=== PATIENT | female | born 1930 ===

== ENCOUNTER 2017-03-02 16:28 | Inpatient (IN) | payer MEDICARE, OTHER ==
[2017-03-02] MEDS ORDERED: Sodium Chloride 0.9% 10 ML Syringe FLUSH PRN (17:16)
--- NOTE | 2017-03-02 18:25 | EDM.PDOC ---
ED HPI GENERAL MEDICAL PROBLEM - General Chief Complaint: Respiratory Problem Stated Complaint: COUGH, LOW STATS Time Seen by Provider: 03/02/17 16:55 Source of Information: Reports: Patient History Limitations: Reports: No Limitations - History of Present Illness INITIAL COMMENTS - FREE TEXT/NARRATIVE: 86-year-old female presents for evaluation and treatment of shortness of breath and productive cough. Patient reports that her symptoms started on Sunday. She presented to the walk-in clinic today where she was found to have oxygen sats in the 80s. She was sent over to us for further management and care. Upon arrival sats were in the 80s. She was placed on 4 L oxygen via nasal cannula and her oxygen increased to 97%. She is currently complaining of cough and cold symptoms. Reports that she is coughing up a thick brown and yellow sputum. She is also reporting some pain behind her right ear. She denies any fevers, chills , nausea, vomiting, headaches, body aches or any chest pain. Patient did get her influenza vaccine this year. Reports one week ago she was around her grandson who was ill. - Related Data Allergies Allergy/AdvReac Type Severity Reaction Status Date / Time No Known Allergies Allergy Verified 03/02/17 16:50 Home Meds: Home Meds Atenolol 50 mg PO DAILY 03/02/17 [History] Calcium Carbonate/Vitamin D3 [Calcium 600 + Vit D 200] 2 tab PO DAILY 03/02/17 [ History] Furosemide 20 mg PO BID 03/02/17 [History] Potassium Chloride 10 meq PO DAILY 03/02/17 [History] Simvastatin [Zocor] 5 mg PO BEDTIME 03/02/17 [History] amLODIPine Besylate [Amlodipine Besylate] 5 mg PO DAILY 03/02/17 [History] Past Medical History Cardiovascular History: Reports: High Cholesterol, Hypertension Respiratory History: Reports: COPD Genitourinary History: Reports: Other (See Below) Other Genitourinary History: "one abnormal kidney" - Past Surgical History GI Surgical History: Reports: Colonoscopy Male Surgical History: Reports: Other (See Below) Other Male Surgeries/Procedures: hysterectomy Musculoskeletal Surgical History: Reports: Knee Replacement Social & Family History - Tobacco Use Smoking Status *Q: Former Smoker Used Tobacco, but Quit: Yes Month Tobacco Last Used: 1989 - Caffeine Use Caffeine Use: Reports: Coffee - Recreational Drug Use Recreational Drug Use: No ED ROS GENERAL - Review of Systems Review Of Systems: See Below Constitutional: Denies: Fever HEENT: Reports: Ear Pain (behind the right ear), Throat Pain Respiratory: Reports: Shortness of Breath, Cough Cardiovascular: Denies: Chest Pain GI/Abdominal: Denies: Abdominal Pain, Nausea, Vomiting Neurological: Denies: Headache ED EXAM, GENERAL - Physical Exam Exam: See Below Exam Limited By: No Limitations General Appearance: Alert, WD/WN, No Apparent Distress Eye Exam: Bilateral Eye: Normal Inspection Ears: Normal External Exam, Normal Canal, Hearing Grossly Normal, Normal TMs Ear Exam: Bilateral Ear: Auricle Normal, Canal Normal, TM normal Nose: Normal Inspection Throat/Mouth: Normal Inspection, Normal Lips, Normal Voice, No Airway Compromise Head: Other (no mostoid tenderness) Neck: Normal Inspection Respiratory/Chest: No Respiratory Distress, Rhonchi (bilateral lung bases), Wheezing (diffuse expiratory) Cardiovascular: Normal Peripheral Pulses, Regular Rate, Rhythm, No Murmur GI/Abdominal: Normal Bowel Sounds, Soft, Non-Tender Neurological: Alert, Oriented, Normal Cognition Psychiatric: Normal Affect, Normal Mood Skin Exam: Warm, Dry, Normal Color Course - Vital Signs Last Recorded V/S: Last Vital Signs Temp 36.6 C 03/02/17 16:45 Pulse 80 03/03/17 00:06 Resp 20 03/02/17 20:06 BP 164/66 H 03/03/17 00:06 Pulse Ox 95 03/02/17 20:06 - Orders/Labs/Meds Orders: Active Orders 24 hr Category Date Time Status Cardiac Monitoring [RC] . DIRECTED Care 03/02/17 17:12 Active Oxygen Therapy [RC] ASDIRECTED Care 03/02/17 17:12 Active Peripheral IV Care [RC] . DIRECTED Care 03/02/17 17:16 Active RT Aerosol Therapy [RC] ASDIRECTED Care 03/02/17 18:43 Active Chest 2V [CR] Stat Exams 03/02/17 17:12 Taken Sodium Chloride 0.9% [Saline Flush] Med 03/02/17 17:16 Active 10 ml FLUSH ASDIRECTED PRN Peripheral IV Insertion Adult [OM.PC] Routine Oth 03/02/17 17:16 Ordered Medication Orders Acetaminophen (Tylenol) 650 mg PO Q4H PRN PRN Reason: Pain (moderate 4-6) Last Admin: 03/03/17 00:09 Dose: 650 mg Albuterol (Proventil Neb Soln) 2.5 mg NEB Q4H PRN PRN Reason: Shortness of Breath Albuterol/Ipratropium (Duoneb 3.0-0.5 Mg/3 Ml) 3 ml NEB QIDRT [facility] Last Admin: 03/02/17 22:03 Dose: 3 ml Atenolol (Tenormin) 25 mg PO BID [facility] Last Admin: 03/03/17 00:06 Dose: 25 mg Enoxaparin Sodium (Lovenox) 30 mg SUBCUT DAILY [facility] Guaifenesin/Phenylephrine HCl (Robitussin Dm) 10 ml PO Q4H PRN PRN Reason: Cough Azithromycin 500 mg/ Sodium (Chloride) 250 mls @ 250 mls/hr IV Q24H [facility] Last Admin: 03/03/17 00:12 Dose: 250 mls/hr Sodium Chloride (Sodium Chloride 0.45%) 1,000 mls @ 100 mls/hr IV ASDIRECTED [facility] Stop: 03/03/17 04:15 Sodium Chloride (Sodium Chloride 0.45%) 1,000 mls @ 75 mls/hr IV ASDIRECTED [facility] Ceftriaxone Sodium 2 gm/ (Sodium Chloride) 100 mls @ 200 mls/hr IV Q24H [facility] Loratadine (Claritin) 10 mg PO BEDTIME [facility] Last Admin: 03/03/17 00:11 Dose: 10 mg Methylprednisolone Sodium Succinate (Solu-Medrol) 80 mg IVPUSH Q8H [facility] Morphine Sulfate (Morphine) 1 mg IVPUSH Q4H PRN PRN Reason: Pain (severe 7-10) Oseltamivir Phosphate (Tamiflu) 75 mg PO QPM [facility] Last Admin: 03/03/17 00:11 Dose: 75 mg Pseudoephedrine HCl (Sudogest) 30 mg PO Q8H PRN PRN Reason: Congestion Simvastatin (Zocor) 5 mg PO BEDTIME [facility] Last Admin: 03/03/17 00:07 Dose: 5 mg Sodium Chloride (Saline Flush) 10 ml FLUSH ASDIRECTED PRN PRN Reason: Keep Vein Open Last Admin: 03/02/17 17:39 Dose: 10 ml Temazepam (Restoril) 7.5 mg PO BEDTIME PRN PRN Reason: Insomnia Tramadol HCl (Ultram) 50 mg PO Q8H PRN PRN Reason: Pain (moderate 4-6) Labs: Laboratory Tests 03/02/17 03/02/17 Range/Units 17:20 17:20 WBC 10.50 H (3.98-10.04) K/mm3 RBC 4.79 (3.98-5.22) M/mm3 Hgb 14.5 (11.2-15.7) gm/L Hct 44.9 (34.1-44.9) % MCV 93.7 (79.4-94.8) fl MCH 30.3 (25.6-32.2) pg MCHC 32.3 (32.2-35.5) g/dl RDW Std Deviation 48.3 H (36.4-46.3) fL Plt Count 174 L (182-369) K/mm3 MPV 11.0 (9.4-12.3) fl Neutrophils % (Manual) 61 H (40-60) % Band Neutrophils % 0 (0-10) % Lymphocytes % (Manual) 24 (20-40) % Atypical Lymphs % 0 % Monocytes % (Manual) 9 (2-10) % Eosinophils % (Manual) 6 H (0.7-5.8) % Basophils % (Manual) 0 L (0.1-1.2) Platelet Estimate Adequate RBC Morph Comment Normal Sodium 143 (136-145) mEq/L Potassium 3.8 (3.5-5.1) mEq/L Chloride 105 (98-107) mEq/L Carbon Dioxide 28 (21-32) mEq/L Anion Gap 13.8 (5-15) BUN 32 H (7-18) mg/dL Creatinine 1.4 H (0.55-1.02) mg/dL Est Cr Clr Drug Dosing 20.33 mL/min Estimated GFR (MDRD) 36 (>60) mL/min BUN/Creatinine Ratio 22.9 H (14-18) Glucose 108 (83-115) mg/dL Calcium 8.9 (8.5-10.1) mg/dL Total Bilirubin 0.5 (0.2-1.0) mg/dL AST 39 H (15-37) U/L ALT 36 (14-59) U/L Alkaline Phosphatase 72 (46-116) U/L C-Reactive Protein 18.2 H* (<1.0) mg/dL Total Protein 7.7 (6.4-8.2) g/dl Albumin 3.6 (3.4-5.0) g/dl Globulin 4.1 gm/dL Albumin/Globulin Ratio 0.9 L (1-2) Meds: Medications Generic Name Dose Route Start Last Admin Trade Name Freq PRN Reason Stop Dose Admin Acetaminophen 650 mg 03/02/17 20:42 03/03/17 00:09 Tylenol PO 650 mg Q4H PRN Administration Pain (moderate 4-6) Albuterol 2.5 mg 03/02/17 20:10 Proventil Neb Soln NEB Q4H PRN Shortness of Breath Albuterol/Ipratropium 3 ml 03/02/17 21:00 03/02/17 22:03 Duoneb 3.0-0.5 Mg/3 Ml NEB 3 ml QIDRT [facility] Administration Atenolol 25 mg 03/02/17 21:00 03/03/17 00:06 Tenormin PO 25 mg BID [facility] Administration Enoxaparin Sodium 30 mg 03/03/17 09:00 Lovenox SUBCUT DAILY [facility] Guaifenesin/Phenylephrine HCl 10 ml 03/02/17 20:43 Robitussin Dm PO Q4H PRN Cough Azithromycin 500 mg/ Sodium 250 mls @ 250 mls/hr 03/02/17 20:30 03/03/17 00: 12 Chloride IV 250 mls/hr Q24H [facility] Administration Sodium Chloride 1,000 mls @ 100 mls/hr 03/02/17 20:15 Sodium Chloride 0.45% IV 03/03/17 04:15 ASDIRECTED [facility] Sodium Chloride 1,000 mls @ 75 mls/hr 03/03/17 04:15 Sodium Chloride 0.45% IV ASDIRECTED [facility] Ceftriaxone Sodium 2 gm/ 100 mls @ 200 mls/hr 03/03/17 00:30 Sodium Chloride IV Q24H [facility] Loratadine 10 mg 03/02/17 21:00 03/03/17 00:11 Claritin PO 10 mg BEDTIME [facility] Administration Methylprednisolone Sodium Succinate 80 mg 03/02/17 20:30 Solu-Medrol IVPUSH Q8H [facility] Morphine Sulfate 1 mg 03/02/17 20:41 Morphine IVPUSH Q4H PRN Pain (severe 7-10) Oseltamivir Phosphate 75 mg 03/02/17 20:15 03/03/17 00:11 Tamiflu PO 75 mg QPM [facility] Administration Pseudoephedrine HCl 30 mg 03/02/17 20:40 Sudogest PO Q8H PRN Congestion Simvastatin 5 mg 03/02/17 21:00 03/03/17 00:07 Zocor PO 5 mg BEDTIME [facility] Administration Sodium Chloride 10 ml 03/02/17 17:16 03/02/17 17:39 Saline Flush FLUSH 10 ml ASDIRECTED PRN Administration Keep Vein Open Temazepam 7.5 mg 03/02/17 20:45 Restoril PO BEDTIME PRN Insomnia Tramadol HCl 50 mg 03/02/17 20:44 Ultram PO Q8H PRN Pain (moderate 4-6) Discontinued Medications Generic Name Dose Route Start Last Admin Trade Name Freq PRN Reason Stop Dose Admin Albuterol 2.5 mg 03/02/17 18:43 03/02/17 18:50 Proventil Neb Soln NEB 03/02/17 18:44 2.5 mg ONETIME ONE Administration Tramadol HCl 50 mg 03/02/17 20:40 Ultram PO Q6H PRN Pain (moderate 4-6) - Radiology Interpretation Free Text/Narrative:: chest xray reviewed by myself and Dr. Pierre shows no acute intrathoracic process. - Re-Assessments/Exams Free Text/Narrative Re-Assessment/Exam: 03/02/17 19:30 Influenza returned positive for type A. The patient needs to be admitted. She is agreeable to this. I discussed case with Dr. Braxton, hospitalist on-call. She will come and see the patient in the ER. Plan on admission. Departure - Departure Time of Disposition: 19:40 Disposition: Admitted As Inpatient 65 Condition: Poor Clinical Impression: Influenza A, Hypoxia - Discharge Information - My Orders Last 24 Hours: My Active Orders 03/02/17 17:12 Cardiac Monitoring [RC] . DIRECTED Oxygen Therapy [RC] ASDIRECTED Chest 2V [CR] Stat 03/02/17 17:16 Peripheral IV Care [RC] . DIRECTED Sodium Chloride 0.9% [Saline Flush] 10 ml FLUSH ASDIRECTED PRN Peripheral IV Insertion Adult [OM.PC] Routine 03/02/17 18:43 RT Aerosol Therapy [RC] ASDIRECTED - Assessment/Plan Last 24 Hours: My Active Orders 03/02/17 17:12 Cardiac Monitoring [RC] . DIRECTED Oxygen Therapy [RC] ASDIRECTED Chest 2V [CR] Stat 03/02/17 17:16 Peripheral IV Care [RC] . DIRECTED Sodium Chloride 0.9% [Saline Flush] 10 ml FLUSH ASDIRECTED PRN Peripheral IV Insertion Adult [OM.PC] Routine 03/02/17 18:43 RT Aerosol Therapy [RC] ASDIRECTED
[2017-03-02] MEDS ORDERED: Albuterol 0.083% 2.5 MG/3 ML Neb Soln NEB ONE (18:43)
--- NOTE | 2017-03-02 19:59 | PCM.HP ---
H&P History of Present Illness - General Date of Service: 03/02/17 Admit Problem/Dx: Admission Diagnosis/Problem Admission Diagnosis/Problem Influenza Source of Information: Patient, Provider History Limitations: Reports: No Limitations - History of Present Illness Initial Comments - Free Text/Narative: 86 year old female with probable Influenza A exposure from her grandson whom she spent 02/25/17. The symptoms began on Sunday or Sunday of this week. She had malaise, productive cough and generalized weakness. The patient was seen in a walk in clinic today, 03/02/17. During that visit, hypoxia was documented; O2 sat was in the low 80s but improved with O2. Currently on 4l/m NC, she is 97%. The patient has audible rhonchi without the use of a stethoscope. CXR shows a possible LLL infiltrate. She will be admitted to [facility]. Onset of Symptoms: Reports: Gradual Symptom Onset Date: 02/26/17 Duration of Symptoms: Reports: Day(s):, Getting Worse Location: Reports: Chest, Generalized Severity: Moderate Improves with: Reports: Medication Worsens with: Reports: None Associated Symptoms: Reports: Chest Pain, cough w sputum, Malaise, Weakness right ear Pain Score (Numeric/FACES): 10 - Related Data Allergies/Adverse Reactions: Allergies Allergy/AdvReac Type Severity Reaction Status Date / Time No Known Allergies Allergy Verified 03/03/17 03:02 Home Medications: Home Meds Atenolol 50 mg PO DAILY 03/02/17 [History] Furosemide 20 mg PO DAILY 03/02/17 [History] Potassium Chloride 20 meq PO DAILY 03/02/17 [History] Simvastatin [Zocor] 5 mg PO BEDTIME 03/02/17 [History] amLODIPine Besylate [Amlodipine Besylate] 10 mg PO DAILY 03/02/17 [History] Albuterol/Ipratropium [Combivent Respimat] 1 puff IH QID 03/03/17 [History] Docusate Sodium [Stool Softener] 100 mg PO TID PRN 03/03/17 [History] Fluticasone Propionate [Flovent] 2 puff IH BID 03/03/17 [History] Folic Acid 1 mg PO DAILY 03/03/17 [History] L Acidophil/B Lactis/B Longum [Florajen3] 460 mg PO DAILY 03/03/17 [History] Psyllium Seed/Aspartame [Natural Fiber Powder] 283 gm PO DAILY PRN 03/03/17 [ History] Sodium Bicarbonate 325 mg PO DAILY 03/03/17 [History] Past Medical History Cardiovascular History: Reports: High Cholesterol, Hypertension Respiratory History: Reports: COPD Genitourinary History: Reports: Other (See Below) Other Genitourinary History: "one abnormal kidney" - Past Surgical History GI Surgical History: Reports: Colonoscopy Male Surgical History: Reports: Other (See Below) Other Male Surgeries/Procedures: hysterectomy Musculoskeletal Surgical History: Reports: Knee Replacement Social & Family History - Tobacco Use Smoking Status *Q: Former Smoker Used Tobacco, but Quit: Yes Month Tobacco Last Used: 1989 - Caffeine Use Caffeine Use: Reports: Coffee - Recreational Drug Use Recreational Drug Use: No H&P Review of Systems - Review of Systems: Review Of Systems: See Below General: Reports: Malaise, Weakness, Decreased Appetite HEENT: Reports: No Symptoms, Ear Pain (right), Sore Throat Pulmonary: Reports: Shortness of Breath, Wheezing Cardiovascular: Reports: No Symptoms Gastrointestinal: Reports: No Symptoms Genitourinary: Reports: No Symptoms Musculoskeletal: Reports: No Symptoms Skin: Reports: No Symptoms Psychiatric: Reports: No Symptoms Neurological: Reports: No Symptoms Immunologic: Reports: No Symptoms Exam - Exam Exam: See Below - Vital Signs Vital Signs: Last Vital Signs Temp 36.6 C 03/02/17 16:45 Pulse 72 03/02/17 16:45 Resp 20 03/02/17 16:45 BP 162/65 H 03/02/17 16:45 Pulse Ox 95 03/02/17 18:43 Weight: 67.132 kg - Exam Quality Assessment: Supplemental Oxygen, DVT Prophylaxis General: Alert, Oriented HEENT: Conjunctiva Clear, EOMI, Pupils Equal, Pupils Reactive, PERRLA Neck: Supple, Trachea Midline Lungs: Normal Respiratory Effort Cardiovascular: Regular Rate, Regular Rhythm GI/Abdominal Exam: Normal Bowel Sounds, Soft, Non-Tender, No Organomegaly, No Distention (Female) Exam: Deferred Rectal (Female) Exam: Deferred Back Exam: Normal Inspection Extremities: Normal Inspection, Non-Tender Skin: Warm, Dry Neurological: Cranial Nerves Intact Neuro Extensive - Mental Status: Alert, Oriented x3, Normal Mood/Affect, Normal Cognition, Memory Intact Neuro Extensive - Motor, Sensory, Reflexes: CN II-XII Intact Psychiatric: Alert, Normal Affect, Normal Mood - Patient Data Result Diagrams: 03/03/17 06:05 03/03/17 06:05 *Q Meaningful Use (ADM) - VTE *Q VTE Criteria *Q: - Stroke *Q Stroke Criteria *Q: - AMI *Q AMI Criteria *Q: - Problem List (1) Hypoxia SNOMED Code(s): 596955656 ICD Code: R09.02 - HYPOXEMIA Status: Acute Current Visit: Yes (2) Influenza A SNOMED Code(s): 336192907 ICD Code: J10.1 - FLU DUE TO OTH IDENT INFLUENZA VIRUS W OTH RESP MANIFEST Status: Acute Current Visit: Yes Problem List Initiated/Reviewed/Updated: No Orders Last 24hrs: Active Orders 24 hr Category Date Time Status Atenolol [Tenormin] Med 03/02/17 21:00 Ordered 25 mg PO BID Simvastatin [Zocor] Med 03/02/17 21:00 Ordered 5 mg PO BEDTIME Medication Orders Sodium Chloride (Saline Flush) 10 ml FLUSH ASDIRECTED PRN PRN Reason: Keep Vein Open Last Admin: 03/02/17 17:39 Dose: 10 ml Assessment/Plan Comment:: Impression: Acute respiratory distress, mild Influenza A positive, reports getting Flu vaccine. COPD, history of tobacco; stopped 1989 Chronic HTN HLD Plan: Tamiflu, renal dose as available IVF Nebs IV steroids Empiric ATB coverage for PNA Daily labs Home meds Droplet precautions DVT/GI prophylaxis CM/PT/OT
[2017-03-02] MEDS ORDERED: Albuterol 0.083% 2.5 MG/3 ML Neb Soln NEB PRN (20:10)
[2017-03-02] MEDS ORDERED: Oseltamivir 75 MG Cap PO SCH (20:15)
[2017-03-02] MEDS ORDERED: Sodium Chloride 0.45% 1,000 ML IV SCH (20:15)
[2017-03-02] MEDS ORDERED: traMADol 50 MG Tab PO PRN ×2 (20:40→20:44)
[2017-03-02] MEDS ORDERED: Pseudoephedrine 30 MG Tab PO PRN (20:40)
[2017-03-02] MEDS ORDERED: Morphine 2 MG/ML Syringe IVPUSH PRN (20:41)
[2017-03-02] MEDS ORDERED: Acetaminophen 325 MG Tab PO PRN (20:42)
[2017-03-02] MEDS ORDERED: cefTRIAXone 2 GM in Sodium Chloride 0.9% 100 ML IV SCH (21:30)
[2017-03-02] MEDS: Albuterol/Ipratropium 3.0-0.5 MG/3 ML Neb Soln NEB SCH (22:03)
[2017-03-03] MEDS: Atenolol 50 MG Tab PO SCH ×3 (00:06→20:52)
[2017-03-03] MEDS: Simvastatin 10 MG Tab PO SCH ×2 (00:07→20:51)
[2017-03-03] MEDS: Loratadine 10 MG Tab PO SCH ×2 (00:11→20:53)
[2017-03-03] MEDS: Azithromycin 500 MG in Sodium Chloride 0.9% 250 ML IV SCH ×2 (00:12→20:51)
[2017-03-03] MEDS ORDERED: cefTRIAXone 2 GM in Sodium Chloride 0.9% 100 ML IV SCH (00:30)
[2017-03-03] MEDS: methylPREDNISolone Sodium Succinate 40 MG/1 ML SDV IVPUSH SCH ×2 (00:45→15:41)
[2017-03-03] MEDS ORDERED: cefTRIAXone 1 GM in Sodium Chloride 0.9% 100 ML IV ONE ×2 (01:30→02:00)
[2017-03-03] MEDS ORDERED: Sodium Chloride 0.45% 1,000 ML IV SCH (04:15)
[2017-03-03] MEDS: Albuterol/Ipratropium 3.0-0.5 MG/3 ML Neb Soln NEB SCH ×4 (06:34→21:28)
[2017-03-03] MEDS ORDERED: methylPREDNISolone Sodium Succinate 40 MG/1 ML SDV IVPUSH SCH (08:45)
[2017-03-03] MEDS: Enoxaparin 30 MG/0.3 ML Syringe SUBCUT SCH (09:52)
[2017-03-03] MEDS ORDERED: [UNRECOGNIZED DRUG - OTHER] PO PRN (12:30)
[2017-03-03] MEDS ORDERED: ASPARTAME PO PRN (12:30)
[2017-03-03] MEDS ORDERED: Docusate Sodium 100 MG Cap PO PRN (12:30)
--- NOTE | 2017-03-03 14:07 | CR ---
Chest: Two views of the chest were obtained. Comparison: No prior study. Heart is enlarged. Pulmonary vessels are slightly congested. Lungs otherwise are clear. Atherosclerotic calcification and mild tortuosity noted of the thoracic aorta. Degenerative change is noted within both acromioclavicular joints. Impression: 1. Cardiomegaly and slight pulmonary vascular congestion. Diagnostic code #2
[2017-03-03] MEDS: methylPREDNISolone Sodium Succinate 125 MG/2 ML SDV IVPUSH SCH (15:31)
[2017-03-03] MEDS: guaiFENesin/Dextromethorphan 100-10 MG/5 ML Soln 5 ML Cup PO PRN (15:31)
[2017-03-03] MEDS: hydrALAZINE 20 MG/ML SDV IVPUSH PRN (16:23)
[2017-03-03] MEDS: Oseltamivir 30 MG Cap PO SCH (17:32)
--- NOTE | 2017-03-03 18:30 | PCM.PN ---
- General Info Date of Service: 03/03/17 Functional Status: Reports: Tolerating Diet - Review of Systems General: Reports: Weakness, Malaise HEENT: Reports: No Symptoms Pulmonary: Reports: No Symptoms Cardiovascular: Reports: No Symptoms Gastrointestinal: Reports: No Symptoms Genitourinary: Reports: No Symptoms Musculoskeletal: Reports: No Symptoms Skin: Reports: No Symptoms Neurological: Reports: No Symptoms Psychiatric: Reports: No Symptoms - Patient Data Vitals - Most Recent: Last Vital Signs Temp 36.8 C 03/03/17 15:19 Pulse 74 03/03/17 15:19 Resp 18 03/03/17 15:19 BP 161/76 H 03/03/17 15:36 Pulse Ox 95 03/03/17 16:27 Weight - Most Recent: 67.132 kg I&O - Last 24 Hours: Intake & Output 03/03/17 03/03/17 03/03/17 06:59 14:59 22:59 Intake Total 600 1030 Output Total 275 250 Balance 325 780 Lab Results Last 24 Hours: Laboratory Results - last 24 hr 03/03/17 03/03/17 03/03/17 Range/Units 06:05 06:05 06:05 WBC 7.72 (3.98-10.04) K/mm3 RBC 4.34 (3.98-5.22) M/mm3 Hgb 13.3 (11.2-15.7) gm/L Hct 40.8 (34.1-44.9) % MCV 94.0 (79.4-94.8) fl MCH 30.6 (25.6-32.2) pg MCHC 32.6 (32.2-35.5) g/dl RDW Std Deviation 46.8 H (36.4-46.3) fL Plt Count 159 L (182-369) K/mm3 MPV 11.3 (9.4-12.3) fl Neut % (Auto) 90.4 H (34.0-71.1) % Lymph % (Auto) 7.5 L (19.3-51.7) % [place] % (Auto) 1.7 L (4.7-12.5) % Eos % (Auto) 0 L (0.7-5.8) Baso % (Auto) 0.1 (0.1-1.2) % Neut # (Auto) 6.98 H (1.56-6.13) K/mm3 Lymph # (Auto) 0.58 L (1.18-3.74) K/mm3 [place] # (Auto) 0.13 L (0.24-0.36) K/mm3 Eos # (Auto) 0.00 L (0.04-0.36) K/mm3 Baso # (Auto) 0.01 (0.01-0.08) K/mm3 Manual Slide Review Normal smear Sodium 144 (136-145) mEq/L Potassium 4.0 (3.5-5.1) mEq/L Chloride 109 H (98-107) mEq/L Carbon Dioxide 26 (21-32) mEq/L Anion Gap 13.0 (5-15) BUN 26 H (7-18) mg/dL Creatinine 1.2 H (0.55-1.02) mg/dL Est Cr Clr Drug Dosing 23.72 mL/min Estimated GFR (MDRD) 42 (>60) mL/min BUN/Creatinine Ratio 21.7 H (14-18) Glucose 163 H (83-115) mg/dL Lactic Acid 0.9 (0.4-2.0) mmol/L Calcium 8.3 L (8.5-10.1) mg/dL Magnesium 2.2 (1.8-2.4) mg/dl C-Reactive Protein 15.6 H* (<1.0) mg/dL Mycoplasma pneumon IgM Negative (NEGATIVE) Med Orders - Current: Current Medications Acetaminophen (Tylenol) 650 mg PO Q4H PRN PRN Reason: Pain (moderate 4-6) Last Admin: 03/03/17 00:09 Dose: 650 mg Albuterol (Proventil Neb Soln) 2.5 mg NEB Q4H PRN PRN Reason: Shortness of Breath Albuterol/Ipratropium (Duoneb 3.0-0.5 Mg/3 Ml) 3 ml NEB QIDRT [facility] Last Admin: 03/03/17 16:25 Dose: 3 ml Atenolol (Tenormin) 25 mg PO BID [facility] Last Admin: 03/03/17 09:51 Dose: 25 mg Docusate Sodium (Colace) 100 mg PO TID PRN PRN Reason: Constipation Enoxaparin Sodium (Lovenox) 30 mg SUBCUT DAILY [facility] Last Admin: 03/03/17 09:52 Dose: 30 mg Folic Acid (Folic Acid) 1 mg PO DAILY [facility] Guaifenesin/Phenylephrine HCl (Robitussin Dm) 10 ml PO Q4H PRN PRN Reason: Cough Last Admin: 03/03/17 15:31 Dose: 10 ml Hydralazine HCl (Apresoline) 20 mg IVPUSH Q6H PRN PRN Reason: Hypertension Last Admin: 03/03/17 16:23 Dose: 20 mg Azithromycin 500 mg/ Sodium (Chloride) 250 mls @ 250 mls/hr IV Q24H [facility] Last Admin: 03/03/17 00:12 Dose: 250 mls/hr Ceftriaxone Sodium 2 gm/ (Dextrose/Water) 100 mls @ 200 mls/hr IV Q24H [facility] Loratadine (Claritin) 10 mg PO BEDTIME [facility] Last Admin: 03/03/17 00:11 Dose: 10 mg Methylprednisolone Sodium Succinate (Solu-Medrol) 125 mg IVPUSH Q8H [facility] Last Admin: 03/03/17 15:31 Dose: 125 mg Morphine Sulfate (Morphine) 1 mg IVPUSH Q4H PRN PRN Reason: Pain (severe 7-10) Oseltamivir Phosphate (Tamiflu) 30 mg PO QPM [facility] Last Admin: 03/03/17 17:32 Dose: 30 mg Pseudoephedrine HCl (Sudogest) 30 mg PO Q8H PRN PRN Reason: Congestion Saccharomyces Boulardii (Florastor) 250 mg PO BID [facility] Simvastatin (Zocor) 5 mg PO BEDTIME [facility] Last Admin: 03/03/17 00:07 Dose: 5 mg Sodium Bicarbonate (Sodium Bicarbonate) 325 mg PO DAILY [facility] Sodium Chloride (Saline Flush) 10 ml FLUSH ASDIRECTED PRN PRN Reason: Keep Vein Open Last Admin: 03/02/17 17:39 Dose: 10 ml Temazepam (Restoril) 7.5 mg PO BEDTIME PRN PRN Reason: Insomnia Tramadol HCl (Ultram) 50 mg PO Q8H PRN PRN Reason: Pain (moderate 4-6) Discontinued Medications Albuterol (Proventil Neb Soln) 2.5 mg NEB ONETIME ONE Stop: 03/02/17 18:44 Last Admin: 03/02/17 18:50 Dose: 2.5 mg Sodium Chloride (Sodium Chloride 0.45%) 1,000 mls @ 100 mls/hr IV ASDIRECTED [facility] Stop: 03/03/17 04:15 Last Admin: 03/03/17 03:45 Dose: 100 mls/hr Sodium Chloride (Sodium Chloride 0.45%) 1,000 mls @ 75 mls/hr IV ASDIRECTED [facility] Ceftriaxone Sodium 1 gm/ (Sodium Chloride) 100 mls @ 200 mls/hr IV ONETIME ONE Stop: 03/03/17 01:59 Last Admin: 03/03/17 02:57 Dose: 200 mls/hr Ceftriaxone Sodium 1 gm/ (Sodium Chloride) 100 mls @ 200 mls/hr IV ONETIME ONE Stop: 03/03/17 02:29 Last Admin: 03/03/17 03:51 Dose: 200 mls/hr Ceftriaxone Sodium 2 gm/ (Sodium Chloride) 100 mls @ 200 mls/hr IV Q24H [facility] Methylprednisolone Sodium Succinate (Solu-Medrol) 80 mg IVPUSH Q8H [facility] Last Admin: 03/03/17 15:41 Dose: Not Given Methylprednisolone Sodium Succinate (Solu-Medrol) 80 mg IVPUSH Q8H [facility] Last Admin: 03/03/17 09:51 Dose: 80 mg Non-Formulary Medication (Fluticasone Propionate [Flovent]) 2 puff IH BID [facility] Non-Formulary Medication (L Acidophil/B Lactis/B Longum [Florajen3]) 460 mg PO DAILY [facility] Non-Formulary Medication (Psyllium Seed/Aspartame [Natural Fiber Powder]) 283 gm PO DAILY PRN PRN Reason: Constipation Oseltamivir Phosphate (Tamiflu) 75 mg PO QPM [facility] Last Admin: 03/03/17 00:11 Dose: 75 mg Tramadol HCl (Ultram) 50 mg PO Q6H PRN PRN Reason: Pain (moderate 4-6) - Exam Quality Assessment: Supplemental Oxygen, DVT Prophylaxis General: Alert, Oriented, Cooperative, No Acute Distress HEENT: Pupils Equal, Pupils Reactive, EOMI Neck: Trachea Midline, No JVD Lungs: Normal Respiratory Effort, Decreased Breath Sounds Cardiovascular: Regular Rate, Regular Rhythm GI/Abdominal Exam: Normal Bowel Sounds, Soft, Non-Tender, No Organomegaly, No Distention (Female) Exam: Deferred Back Exam: Normal Inspection Extremities: Normal Inspection, Non-Tender Skin: Warm Neurological: No New Focal Deficit, Normal Speech Psy/Mental Status: Alert, Normal Affect, Normal Mood - Problem List & Annotations (1) Hypoxia SNOMED Code(s): 709121567 Code(s): R09.02 - HYPOXEMIA Status: Acute Current Visit: Yes (2) Influenza A SNOMED Code(s): 531130864 Code(s): J10.1 - FLU DUE TO OTH IDENT INFLUENZA VIRUS W OTH RESP MANIFEST Status: Acute Current Visit: Yes - Problem List Review Problem List Initiated/Reviewed/Updated: Yes - My Orders Last 24 Hours: My Active Orders 03/02/17 20:10 Albuterol [Proventil Neb Soln] 2.5 mg NEB Q4H PRN 03/02/17 20:11 Activity as Tolerated [RC] .Routine 03/02/17 20:30 Azithromycin [Zithromax] 500 mg Sodium Chloride 0.9% [Normal Saline] 250 ml IV Q24H 03/02/17 20:40 Pseudoephedrine [Sudogest] 30 mg PO Q8H PRN 03/02/17 20:41 Morphine 1 mg IVPUSH Q4H PRN 03/02/17 20:42 Acetaminophen [Tylenol] 650 mg PO Q4H PRN 03/02/17 20:43 Dextromethorphan/guaiFENesin [Robitussin DM] 10 ml PO Q4H PRN 03/02/17 20:44 traMADol [Ultram] 50 mg PO Q8H PRN 03/02/17 20:45 Temazepam [Restoril] 7.5 mg PO BEDTIME PRN 03/02/17 20:49 Isolation [COMM] Routine 03/02/17 21:00 Albuterol/Ipratropium [DuoNeb 3.0-0.5 MG/3 ML] 3 ml NEB QIDRT Atenolol [Tenormin] 25 mg PO BID Loratadine [Claritin] 10 mg PO BEDTIME Simvastatin [Zocor] 5 mg PO BEDTIME 03/03/17 03:01 Code Status [Resuscitation Status] Routine 03/03/17 09:00 Consult to Occupational Therapy [OT Evaluation and Treatment] [CONS] Routine Enoxaparin [Lovenox] 30 mg SUBCUT DAILY 03/03/17 10:00 Consult to Physical Therapy [PT Evaluation and Treatment] [CONS] Routine 03/03/17 10:12 STREP PNEUMONIAE ANTIGEN [MREF] Routine 03/03/17 12:30 Docusate Sodium [Colace] 100 mg PO TID PRN 03/03/17 16:00 methylPREDNISolone Sod Succ [Solu-MEDROL] 125 mg IVPUSH Q8H 03/03/17 16:03 hydrALAZINE [Apresoline] 20 mg IVPUSH Q6H PRN 03/03/17 18:00 Oseltamivir [Tamiflu] 30 mg PO QPM 03/03/17 21:00 Saccharomyces Boulardii [Florastor] 250 mg PO BID 03/03/17 Lunch Heart Healthy Diet [DIET] 03/04/17 01:30 cefTRIAXone [Rocephin] 2 gm Dextrose 5% in Water 100 ml IV Q24H 03/04/17 05:00 BMP [BASIC METABOLIC PANEL,BMP] [CHEM] DAILY CBC WITH AUTO DIFF [HEME] DAILY CRP [C-REACTIVE PROTEIN] [CHEM] DAILY LACTIC ACID [CHEM] DAILY MAGNESIUM [CHEM] DAILY 03/04/17 09:00 CXR [Chest 2V] [CR] Routine Folic Acid 1 mg PO DAILY Sodium Bicarbonate 325 mg PO DAILY 03/05/17 05:00 BMP [BASIC METABOLIC PANEL,BMP] [CHEM] DAILY CBC WITH AUTO DIFF [HEME] DAILY CRP [C-REACTIVE PROTEIN] [CHEM] DAILY MAGNESIUM [CHEM] DAILY 03/06/17 05:00 BMP [BASIC METABOLIC PANEL,BMP] [CHEM] DAILY CBC WITH AUTO DIFF [HEME] DAILY CRP [C-REACTIVE PROTEIN] [CHEM] DAILY MAGNESIUM [CHEM] DAILY 03/07/17 05:00 BMP [BASIC METABOLIC PANEL,BMP] [CHEM] DAILY CBC WITH AUTO DIFF [HEME] DAILY CRP [C-REACTIVE PROTEIN] [CHEM] DAILY MAGNESIUM [CHEM] DAILY - Plan Plan:: Impression: Acute respiratory distress--resolved Influenza A positive, reports getting Flu vaccine. COPD, history of tobacco; stopped 1989 Chronic HTN HLD Plan: Tamiflu, renal dose as available IVF Nebs IV steroids Empiric ATB coverage for PNA Daily labs Home meds Droplet precautions DVT/GI prophylaxis CM/PT/OT
[2017-03-03] MEDS: Saccharomyces Boulardii (Probiotic) 250 MG Cap PO SCH (20:51)
[2017-03-03] MEDS ORDERED: Non-Formulary Medication 1 Each (Fluticasone Propionate [Flovent] 2 PUFF) IH SCH (21:00)
[2017-03-04] MEDS: methylPREDNISolone Sodium Succinate 125 MG/2 ML SDV IVPUSH SCH ×3 (00:14→15:57)
[2017-03-04] MEDS: Temazepam 7.5 MG Cap PO PRN ×2 (00:30→20:12)
[2017-03-04] MEDS ORDERED: cefTRIAXone 2 GM in Sodium Chloride 0.9% 100 ML IV SCH (01:30)
[2017-03-04] MEDS: hydrALAZINE 20 MG/ML SDV IVPUSH PRN (05:43)
[2017-03-04] MEDS: Albuterol/Ipratropium 3.0-0.5 MG/3 ML Neb Soln NEB SCH ×4 (06:41→20:51)
[2017-03-04] MEDS ORDERED: Non-Formulary Medication 1 Each (L Acidophil/B Lactis/B Longum [Florajen3] 460 MG) PO SCH (09:00)
[2017-03-04] MEDS: Enoxaparin 30 MG/0.3 ML Syringe SUBCUT SCH (09:10)
[2017-03-04] MEDS: Saccharomyces Boulardii (Probiotic) 250 MG Cap PO SCH ×2 (09:10→20:11)
[2017-03-04] MEDS: Atenolol 50 MG Tab PO SCH ×2 (09:11→20:18)
[2017-03-04] MEDS: Folic Acid 1 MG Tab PO SCH (09:11)
[2017-03-04] MEDS: Sodium Bicarbonate 650 MG Tab PO SCH (09:11)
--- NOTE | 2017-03-04 09:29 | CR ---
Chest: 2 views of the chest were obtained. Comparison: Previous chest x-ray 03/02/17. Heart is mildly enlarged. Tortuous thoracic aorta is seen. Pulmonary vessels are slightly increased. Pulmonary vessels may be mildly increased from prior study. Lungs otherwise are clear. Probable minimal pleural effusions are noted. Bony structures appear within normal limits for the patient's age. Impression: 1. Cardiomegaly and pulmonary vascular congestion. Pulmonary vascular congestion is felt to be slightly increased from previous study. 2. Possible minimal pleural effusions. Diagnostic code #3
--- NOTE | 2017-03-04 09:44 | PCM.PN ---
- General Info Date of Service: 03/04/17 Subjective Update: ; is slowly feeling better. She has minimal complaints. The patient reports less shortness of breath Functional Status: Reports: Tolerating Diet, Ambulating, Urinating - Review of Systems General: Reports: Weakness HEENT: Reports: No Symptoms Pulmonary: Reports: Shortness of Breath Cardiovascular: Reports: No Symptoms Gastrointestinal: Reports: No Symptoms Genitourinary: Reports: No Symptoms Musculoskeletal: Reports: No Symptoms Skin: Reports: No Symptoms Neurological: Reports: No Symptoms Psychiatric: Reports: No Symptoms - Patient Data Vitals - Most Recent: Last Vital Signs Temp 36.4 C 03/04/17 07:19 Pulse 88 03/04/17 07:19 Resp 16 03/04/17 07:19 BP 145/56 H 03/04/17 07:19 Pulse Ox 92 L 03/04/17 07:19 Weight - Most Recent: 69.173 kg I&O - Last 24 Hours: Intake & Output 03/03/17 03/04/17 03/04/17 22:59 06:59 14:59 Intake Total 1030 750 Output Total 250 525 Balance 780 225 Lab Results Last 24 Hours: Laboratory Results - last 24 hr 03/04/17 03/04/17 03/04/17 Range/Units 06:15 06:15 06:15 WBC 10.71 H (3.98-10.04) K/mm3 RBC 4.39 (3.98-5.22) M/mm3 Hgb 13.4 (11.2-15.7) gm/L Hct 41.0 (34.1-44.9) % MCV 93.4 (79.4-94.8) fl MCH 30.5 (25.6-32.2) pg MCHC 32.7 (32.2-35.5) g/dl RDW Std Deviation 47.1 H (36.4-46.3) fL Plt Count 174 L (182-369) K/mm3 MPV 11.3 (9.4-12.3) fl Neut % (Auto) 83.0 H (34.0-71.1) % Lymph % (Auto) 10.7 L (19.3-51.7) % [place] % (Auto) 5.1 (4.7-12.5) % Eos % (Auto) 0 L (0.7-5.8) Baso % (Auto) 0.3 (0.1-1.2) % Neut # (Auto) 8.88 H (1.56-6.13) K/mm3 Lymph # (Auto) 1.15 L (1.18-3.74) K/mm3 [place] # (Auto) 0.55 H (0.24-0.36) K/mm3 Eos # (Auto) 0.00 L (0.04-0.36) K/mm3 Baso # (Auto) 0.03 (0.01-0.08) K/mm3 Manual Slide Review Normal smear Sodium 143 (136-145) mEq/L Potassium 3.8 (3.5-5.1) mEq/L Chloride 107 (98-107) mEq/L Carbon Dioxide 25 (21-32) mEq/L Anion Gap 14.8 (5-15) BUN 27 H (7-18) mg/dL Creatinine 1.1 H (0.55-1.02) mg/dL Est Cr Clr Drug Dosing 25.88 mL/min Estimated GFR (MDRD) 47 (>60) mL/min BUN/Creatinine Ratio 24.5 H (14-18) Glucose 179 H (83-115) mg/dL Lactic Acid 1.0 (0.4-2.0) mmol/L Calcium 8.8 (8.5-10.1) mg/dL Magnesium 2.3 (1.8-2.4) mg/dl C-Reactive Protein 9.4 H* (<1.0) mg/dL Med Orders - Current: Current Medications Acetaminophen (Tylenol) 650 mg PO Q4H PRN PRN Reason: Pain (moderate 4-6) Last Admin: 03/03/17 00:09 Dose: 650 mg Albuterol (Proventil Neb Soln) 2.5 mg NEB Q4H PRN PRN Reason: Shortness of Breath Albuterol/Ipratropium (Duoneb 3.0-0.5 Mg/3 Ml) 3 ml NEB QIDRT [facility] Last Admin: 03/04/17 06:41 Dose: 3 ml Atenolol (Tenormin) 25 mg PO BID [facility] Last Admin: 03/04/17 09:11 Dose: 25 mg Docusate Sodium (Colace) 100 mg PO TID PRN PRN Reason: Constipation Enoxaparin Sodium (Lovenox) 30 mg SUBCUT DAILY [facility] Last Admin: 03/04/17 09:10 Dose: 30 mg Folic Acid (Folic Acid) 1 mg PO DAILY [facility] Last Admin: 03/04/17 09:11 Dose: 1 mg Guaifenesin/Phenylephrine HCl (Robitussin Dm) 10 ml PO Q4H PRN PRN Reason: Cough Last Admin: 03/03/17 15:31 Dose: 10 ml Hydralazine HCl (Apresoline) 20 mg IVPUSH Q6H PRN PRN Reason: Hypertension Last Admin: 03/04/17 05:43 Dose: 20 mg Azithromycin 500 mg/ Sodium (Chloride) 250 mls @ 250 mls/hr IV Q24H [facility] Last Admin: 03/03/17 20:51 Dose: 250 mls/hr Ceftriaxone Sodium 2 gm/ (Dextrose/Water) 100 mls @ 200 mls/hr IV Q24H [facility] Last Admin: 03/04/17 00:31 Dose: 200 mls/hr Loratadine (Claritin) 10 mg PO BEDTIME [facility] Last Admin: 03/03/17 20:53 Dose: 10 mg Methylprednisolone Sodium Succinate (Solu-Medrol) 125 mg IVPUSH Q8H [facility] Last Admin: 03/04/17 09:10 Dose: 125 mg Morphine Sulfate (Morphine) 1 mg IVPUSH Q4H PRN PRN Reason: Pain (severe 7-10) Oseltamivir Phosphate (Tamiflu) 30 mg PO QPM [facility] Stop: 03/06/17 20:00 Last Admin: 03/03/17 17:32 Dose: 30 mg Pseudoephedrine HCl (Sudogest) 30 mg PO Q8H PRN PRN Reason: Congestion Saccharomyces Boulardii (Florastor) 250 mg PO BID [facility] Last Admin: 03/04/17 09:10 Dose: 250 mg Simvastatin (Zocor) 5 mg PO BEDTIME [facility] Last Admin: 03/03/17 20:51 Dose: 5 mg Sodium Bicarbonate (Sodium Bicarbonate) 325 mg PO DAILY [facility] Last Admin: 03/04/17 09:11 Dose: 325 mg Sodium Chloride (Saline Flush) 10 ml FLUSH ASDIRECTED PRN PRN Reason: Keep Vein Open Last Admin: 03/02/17 17:39 Dose: 10 ml Temazepam (Restoril) 7.5 mg PO BEDTIME PRN PRN Reason: Insomnia Last Admin: 03/04/17 00:30 Dose: 7.5 mg Tramadol HCl (Ultram) 50 mg PO Q8H PRN PRN Reason: Pain (moderate 4-6) Discontinued Medications Albuterol (Proventil Neb Soln) 2.5 mg NEB ONETIME ONE Stop: 03/02/17 18:44 Last Admin: 03/02/17 18:50 Dose: 2.5 mg Sodium Chloride (Sodium Chloride 0.45%) 1,000 mls @ 100 mls/hr IV ASDIRECTED [facility] Stop: 03/03/17 04:15 Last Admin: 03/03/17 03:45 Dose: 100 mls/hr Sodium Chloride (Sodium Chloride 0.45%) 1,000 mls @ 75 mls/hr IV ASDIRECTED [facility] Ceftriaxone Sodium 1 gm/ (Sodium Chloride) 100 mls @ 200 mls/hr IV ONETIME ONE Stop: 03/03/17 01:59 Last Admin: 03/03/17 02:57 Dose: 200 mls/hr Ceftriaxone Sodium 1 gm/ (Sodium Chloride) 100 mls @ 200 mls/hr IV ONETIME ONE Stop: 03/03/17 02:29 Last Admin: 03/03/17 03:51 Dose: 200 mls/hr Ceftriaxone Sodium 2 gm/ (Sodium Chloride) 100 mls @ 200 mls/hr IV Q24H [facility] Methylprednisolone Sodium Succinate (Solu-Medrol) 80 mg IVPUSH Q8H [facility] Last Admin: 03/03/17 15:41 Dose: Not Given Methylprednisolone Sodium Succinate (Solu-Medrol) 80 mg IVPUSH Q8H [facility] Last Admin: 03/03/17 09:51 Dose: 80 mg Non-Formulary Medication (Fluticasone Propionate [Flovent]) 2 puff IH BID [facility] Non-Formulary Medication (L Acidophil/B Lactis/B Longum [Florajen3]) 460 mg PO DAILY [facility] Non-Formulary Medication (Psyllium Seed/Aspartame [Natural Fiber Powder]) 283 gm PO DAILY PRN PRN Reason: Constipation Oseltamivir Phosphate (Tamiflu) 75 mg PO QPM [facility] Last Admin: 03/03/17 00:11 Dose: 75 mg Tramadol HCl (Ultram) 50 mg PO Q6H PRN PRN Reason: Pain (moderate 4-6) - Exam Quality Assessment: Supplemental Oxygen, DVT Prophylaxis General: Alert, Oriented, Cooperative, No Acute Distress HEENT: Pupils Equal, Pupils Reactive, EOMI Neck: Supple, Trachea Midline, No JVD Lungs: Normal Respiratory Effort, Decreased Breath Sounds Cardiovascular: Regular Rate, Regular Rhythm GI/Abdominal Exam: Normal Bowel Sounds, Soft, Non-Tender, No Organomegaly, No Distention (Female) Exam: Deferred Back Exam: Normal Inspection Extremities: Normal Inspection, Non-Tender Skin: Warm Neurological: No New Focal Deficit Psy/Mental Status: Alert, Normal Affect, Normal Mood - Problem List & Annotations (1) Hypoxia SNOMED Code(s): 915041456 Code(s): R09.02 - HYPOXEMIA Status: Acute Current Visit: Yes (2) Influenza A SNOMED Code(s): 020335424 Code(s): J10.1 - FLU DUE TO OTH IDENT INFLUENZA VIRUS W OTH RESP MANIFEST Status: Acute Current Visit: Yes - Problem List Review Problem List Initiated/Reviewed/Updated: Yes - My Orders Last 24 Hours: My Active Orders 03/03/17 09:00 Consult to Occupational Therapy [OT Evaluation and Treatment] [CONS] Routine Enoxaparin [Lovenox] 30 mg SUBCUT DAILY 03/03/17 10:00 Consult to Physical Therapy [PT Evaluation and Treatment] [CONS] Routine 03/03/17 10:12 STREP PNEUMONIAE ANTIGEN [MREF] Routine 03/03/17 12:30 Docusate Sodium [Colace] 100 mg PO TID PRN 03/03/17 16:00 methylPREDNISolone Sod Succ [Solu-MEDROL] 125 mg IVPUSH Q8H 03/03/17 16:03 hydrALAZINE [Apresoline] 20 mg IVPUSH Q6H PRN 03/03/17 18:00 Oseltamivir [Tamiflu] 30 mg PO QPM 03/03/17 21:00 Saccharomyces Boulardii [Florastor] 250 mg PO BID 03/03/17 Lunch Heart Healthy Diet [DIET] 03/04/17 01:30 cefTRIAXone [Rocephin] 2 gm Dextrose 5% in Water 100 ml IV Q24H 03/04/17 09:00 Folic Acid 1 mg PO DAILY Sodium Bicarbonate 325 mg PO DAILY 03/05/17 05:00 BMP [BASIC METABOLIC PANEL,BMP] [CHEM] DAILY CBC WITH AUTO DIFF [HEME] DAILY CRP [C-REACTIVE PROTEIN] [CHEM] DAILY MAGNESIUM [CHEM] DAILY 03/06/17 05:00 BMP [BASIC METABOLIC PANEL,BMP] [CHEM] DAILY CBC WITH AUTO DIFF [HEME] DAILY CRP [C-REACTIVE PROTEIN] [CHEM] DAILY MAGNESIUM [CHEM] DAILY 03/07/17 05:00 BMP [BASIC METABOLIC PANEL,BMP] [CHEM] DAILY CBC WITH AUTO DIFF [HEME] DAILY CRP [C-REACTIVE PROTEIN] [CHEM] DAILY MAGNESIUM [CHEM] DAILY - Plan Plan:: Impression: Acute respiratory distress, mild Influenza A positive, reports getting Flu vaccine. COPD, history of tobacco; stopped 1989 Chronic HTN HLD Plan: Tamiflu, renal dose as available IVF Nebs IV steroids Empiric ATB coverage for PNA Daily labs Home meds Droplet precautions DVT/GI prophylaxis CM/PT/OT
[2017-03-04] MEDS ORDERED: Furosemide 20 MG/2 ML VIAL IVPUSH ONE (11:13)
[2017-03-04] MEDS: guaiFENesin/Dextromethorphan 100-10 MG/5 ML Soln 5 ML Cup PO PRN ×2 (16:54→20:10)
[2017-03-04] MEDS: Oseltamivir 30 MG Cap PO SCH ×2 (16:54→17:00)
[2017-03-04] MEDS: Azithromycin 500 MG in Sodium Chloride 0.9% 250 ML IV SCH (20:10)
[2017-03-04] MEDS: Simvastatin 10 MG Tab PO SCH (20:12)
[2017-03-04] MEDS: Loratadine 10 MG Tab PO SCH (20:12)
[2017-03-05] MEDS: methylPREDNISolone Sodium Succinate 125 MG/2 ML SDV IVPUSH SCH ×2 (00:10→08:12)
[2017-03-05] MEDS: hydrALAZINE 20 MG/ML SDV IVPUSH PRN ×2 (02:13→20:22)
[2017-03-05] MEDS: Albuterol/Ipratropium 3.0-0.5 MG/3 ML Neb Soln NEB SCH ×4 (06:22→21:26)
[2017-03-05] MEDS: Saccharomyces Boulardii (Probiotic) 250 MG Cap PO SCH ×2 (08:12→20:19)
[2017-03-05] MEDS: Enoxaparin 30 MG/0.3 ML Syringe SUBCUT SCH (08:12)
[2017-03-05] MEDS: Sodium Bicarbonate 650 MG Tab PO SCH (08:13)
[2017-03-05] MEDS: Folic Acid 1 MG Tab PO SCH (08:13)
[2017-03-05] MEDS: Atenolol 50 MG Tab PO SCH ×2 (08:21→20:19)
[2017-03-05] MEDS: amLODIPine 10 MG Tab PO SCH (11:13)
[2017-03-05] MEDS: Potassium Chloride 10 MEQ Tab.ER PO SCH (11:13)
[2017-03-05] MEDS: Furosemide 20 MG Tab PO SCH (11:13)
--- NOTE | 2017-03-05 11:39 | PCM.PN ---
- General Info Date of Service: 03/05/17 Admission Dx/Problem (Free Text): Admission Diagnosis/Problem Admission Diagnosis/Problem Influenza A Doing well this morning. Offers no complaints. Cough is improving, afebrile and other VSS. Functional Status: Reports: Pain Controlled, Tolerating Diet, Ambulating, Urinating, Incentive Spirometry - Review of Systems General: Reports: No Symptoms HEENT: Reports: No Symptoms Pulmonary: Reports: Cough. Denies: Sputum Cardiovascular: Reports: No Symptoms. Denies: Chest Pain Gastrointestinal: Reports: No Symptoms. Denies: Abdominal Pain, Nausea, Vomiting Genitourinary: Reports: No Symptoms Neurological: Reports: No Symptoms - Patient Data Vitals - Most Recent: Last Vital Signs Temp 97.9 F 03/05/17 08:19 Pulse 88 03/05/17 08:21 Resp 18 03/05/17 08:19 BP 159/62 H 03/05/17 11:13 Pulse Ox 94 L 03/05/17 10:13 Weight - Most Recent: 151 lb 12.8 oz I&O - Last 24 Hours: Intake & Output 03/04/17 03/05/17 03/05/17 22:59 06:59 14:59 Intake Total 300 750 180 Output Total 350 700 Balance -50 50 180 Lab Results Last 24 Hours: Laboratory Results - last 24 hr 03/05/17 03/05/17 Range/Units 06:35 06:35 WBC 18.14 H (3.98-10.04) K/mm3 RBC 4.34 (3.98-5.22) M/mm3 Hgb 13.2 (11.2-15.7) gm/L Hct 40.7 (34.1-44.9) % MCV 93.8 (79.4-94.8) fl MCH 30.4 (25.6-32.2) pg MCHC 32.4 (32.2-35.5) g/dl RDW Std Deviation 48.5 H (36.4-46.3) fL Plt Count 210 (182-369) K/mm3 MPV 11.1 (9.4-12.3) fl Neut % (Auto) 86.4 H (34.0-71.1) % Lymph % (Auto) 7.6 L (19.3-51.7) % [place] % (Auto) 3.9 L (4.7-12.5) % Eos % (Auto) 0 L (0.7-5.8) Baso % (Auto) 0.3 (0.1-1.2) % Neut # (Auto) 15.68 H (1.56-6.13) K/mm3 Lymph # (Auto) 1.38 (1.18-3.74) K/mm3 [place] # (Auto) 0.70 H (0.24-0.36) K/mm3 Eos # (Auto) 0.00 L (0.04-0.36) K/mm3 Baso # (Auto) 0.05 (0.01-0.08) K/mm3 Manual Slide Review Abnormal smear Sodium 144 (136-145) mEq/L Potassium 3.6 (3.5-5.1) mEq/L Chloride 108 H (98-107) mEq/L Carbon Dioxide 26 (21-32) mEq/L Anion Gap 13.6 (5-15) BUN 32 H (7-18) mg/dL Creatinine 1.4 H (0.55-1.02) mg/dL Est Cr Clr Drug Dosing 20.33 mL/min Estimated GFR (MDRD) 36 (>60) mL/min BUN/Creatinine Ratio 22.9 H (14-18) Glucose 179 H (83-115) mg/dL Calcium 8.6 (8.5-10.1) mg/dL Magnesium 2.3 (1.8-2.4) mg/dl C-Reactive Protein 4.2 H* (<1.0) mg/dL Med Orders - Current: Current Medications Acetaminophen (Tylenol) 650 mg PO Q4H PRN PRN Reason: Pain (moderate 4-6) Last Admin: 03/03/17 00:09 Dose: 650 mg Albuterol (Proventil Neb Soln) 2.5 mg NEB Q4H PRN PRN Reason: Shortness of Breath Albuterol/Ipratropium (Duoneb 3.0-0.5 Mg/3 Ml) 3 ml NEB QIDRT [facility] Last Admin: 03/05/17 10:11 Dose: 3 ml Amlodipine Besylate (Norvasc) 10 mg PO DAILY [facility] Last Admin: 03/05/17 11:13 Dose: 10 mg Atenolol (Tenormin) 25 mg PO BID [facility] Last Admin: 03/05/17 08:21 Dose: 25 mg Azithromycin (Zithromax) 250 mg PO Q24H [facility] Docusate Sodium (Colace) 100 mg PO TID PRN PRN Reason: Constipation Enoxaparin Sodium (Lovenox) 30 mg SUBCUT DAILY [facility] Last Admin: 03/05/17 08:12 Dose: 30 mg Folic Acid (Folic Acid) 1 mg PO DAILY [facility] Last Admin: 03/05/17 08:13 Dose: 1 mg Furosemide (Lasix) 20 mg PO DAILY [facility] Last Admin: 03/05/17 11:13 Dose: 20 mg Guaifenesin/Phenylephrine HCl (Robitussin Dm) 10 ml PO Q4H PRN PRN Reason: Cough Last Admin: 03/04/17 20:10 Dose: 10 ml Hydralazine HCl (Apresoline) 20 mg IVPUSH Q6H PRN PRN Reason: Hypertension Last Admin: 03/05/17 02:13 Dose: 20 mg Loratadine (Claritin) 10 mg PO BEDTIME [facility] Last Admin: 03/04/17 20:12 Dose: 10 mg Methylprednisolone Sodium Succinate (Solu-Medrol) 80 mg IVPUSH Q12H [facility] Morphine Sulfate (Morphine) 1 mg IVPUSH Q4H PRN PRN Reason: Pain (severe 7-10) Oseltamivir Phosphate (Tamiflu) 30 mg PO QPM [facility] Stop: 03/06/17 20:00 Last Admin: 03/04/17 17:00 Dose: Not Given Potassium Chloride (Klor-Con 10) 20 meq PO DAILY [facility] Last Admin: 03/05/17 11:13 Dose: 20 meq Pseudoephedrine HCl (Sudogest) 30 mg PO Q8H PRN PRN Reason: Congestion Saccharomyces Boulardii (Florastor) 250 mg PO BID [facility] Last Admin: 03/05/17 08:12 Dose: 250 mg Simvastatin (Zocor) 5 mg PO BEDTIME [facility] Last Admin: 03/04/17 20:12 Dose: 5 mg Sodium Bicarbonate (Sodium Bicarbonate) 325 mg PO DAILY [facility] Last Admin: 03/05/17 08:13 Dose: 325 mg Sodium Chloride (Saline Flush) 10 ml FLUSH ASDIRECTED PRN PRN Reason: Keep Vein Open Last Admin: 03/02/17 17:39 Dose: 10 ml Temazepam (Restoril) 7.5 mg PO BEDTIME PRN PRN Reason: Insomnia Last Admin: 03/04/17 20:12 Dose: 7.5 mg Tramadol HCl (Ultram) 50 mg PO Q8H PRN PRN Reason: Pain (moderate 4-6) Discontinued Medications Albuterol (Proventil Neb Soln) 2.5 mg NEB ONETIME ONE Stop: 03/02/17 18:44 Last Admin: 03/02/17 18:50 Dose: 2.5 mg Cefpodoxime Proxetil (Vantin) 200 mg PO BID [facility] Furosemide (Lasix) 10 mg IVPUSH NOW ONE Stop: 03/04/17 11:14 Last Admin: 03/04/17 11:35 Dose: 10 mg Azithromycin 500 mg/ Sodium (Chloride) 250 mls @ 250 mls/hr IV Q24H [facility] Last Admin: 03/04/17 20:10 Dose: 250 mls/hr Sodium Chloride (Sodium Chloride 0.45%) 1,000 mls @ 100 mls/hr IV ASDIRECTED [facility] Stop: 03/03/17 04:15 Last Admin: 03/03/17 03:45 Dose: 100 mls/hr Sodium Chloride (Sodium Chloride 0.45%) 1,000 mls @ 75 mls/hr IV ASDIRECTED [facility] Ceftriaxone Sodium 1 gm/ (Sodium Chloride) 100 mls @ 200 mls/hr IV ONETIME ONE Stop: 03/03/17 01:59 Last Admin: 03/03/17 02:57 Dose: 200 mls/hr Ceftriaxone Sodium 1 gm/ (Sodium Chloride) 100 mls @ 200 mls/hr IV ONETIME ONE Stop: 03/03/17 02:29 Last Admin: 03/03/17 03:51 Dose: 200 mls/hr Ceftriaxone Sodium 2 gm/ (Sodium Chloride) 100 mls @ 200 mls/hr IV Q24H [facility] Ceftriaxone Sodium 2 gm/ (Dextrose/Water) 100 mls @ 200 mls/hr IV Q24H [facility] Last Admin: 03/05/17 01:48 Dose: Not Given Methylprednisolone Sodium Succinate (Solu-Medrol) 80 mg IVPUSH Q8H [facility] Last Admin: 03/03/17 15:41 Dose: Not Given Methylprednisolone Sodium Succinate (Solu-Medrol) 80 mg IVPUSH Q8H [facility] Last Admin: 03/03/17 09:51 Dose: 80 mg Methylprednisolone Sodium Succinate (Solu-Medrol) 125 mg IVPUSH Q8H [facility] Last Admin: 03/05/17 08:12 Dose: 125 mg Non-Formulary Medication (Fluticasone Propionate [Flovent]) 2 puff IH BID [facility] Non-Formulary Medication (L Acidophil/B Lactis/B Longum [Florajen3]) 460 mg PO DAILY [facility] Non-Formulary Medication (Psyllium Seed/Aspartame [Natural Fiber Powder]) 283 gm PO DAILY PRN PRN Reason: Constipation Oseltamivir Phosphate (Tamiflu) 75 mg PO QPM [facility] Last Admin: 03/03/17 00:11 Dose: 75 mg Tramadol HCl (Ultram) 50 mg PO Q6H PRN PRN Reason: Pain (moderate 4-6) - Exam General: Alert, Cooperative, No Acute Distress HEENT: Pupils Equal, EOMI, Mucous Membr. Moist/[place] Neck: Supple Lungs: Normal Respiratory Effort, Decreased Breath Sounds Cardiovascular: Regular Rate, Regular Rhythm GI/Abdominal Exam: Normal Bowel Sounds, Soft, Non-Tender (Female) Exam: Deferred Extremities: No Pedal Edema, Normal Capillary Refill Neurological: No New Focal Deficit Psy/Mental Status: Alert, Normal Affect, Normal Mood - Problem List & Annotations (1) Hypoxia SNOMED Code(s): 055212546 Code(s): R09.02 - HYPOXEMIA Status: Acute Priority: High Current Visit : Yes (2) Influenza A SNOMED Code(s): 674406069 Code(s): J10.1 - FLU DUE TO OTH IDENT INFLUENZA VIRUS W OTH RESP MANIFEST Status: Acute Priority: High Current Visit: Yes - Problem List Review Problem List Initiated/Reviewed/Updated: Yes - My Orders Last 24 Hours: My Active Orders 03/05/17 09:54 RT Incentive Spirometry [RC] Q2HWA 03/05/17 10:00 Furosemide [Lasix] 20 mg PO DAILY Potassium Chloride [Klor-Con 10] 20 meq PO DAILY amLODIPine [Norvasc] 10 mg PO DAILY 03/05/17 20:00 methylPREDNISolone Sod Succ [Solu-MEDROL] 80 mg IVPUSH Q12H - Plan Plan:: Impression/Plan: Acute respiratory distress with hypoxia---improving -Supplemental oxygen PRN -RT/IS/Nebs -Negative mycoplasma; strep pneumo antigen pending Influenza A positive, reports getting Flu vaccine. -Tamiflu BID -DC vantin, cont zithromax for antiinflammatory purposes x 1-2 more days then DC -Taper solumedrol, 125 Q8hrs to 80mg Q12 hrs -CXR done yesterday shows pulm vasc congestion with ? minimal pleural effusions- rec'd lasix IVP yesterday, good UO noted; no evidence or concerns for pneumonia. CKD, stage 3 -Follow renal labs -Creatinine -1.4-->1.2--1.1-->1.4 -Renal dose medications; caution with diuresis Elevated blood glucose; no hx of DM -Likely due to high dose steroids -Check A1C-->5.8 Chronic HTN--resume home meds; norvasc and lasix this morning HLD- cont home statin COPD, history of tobacco; stopped 1989 Other: Daily labs Home meds Droplet precautions DVT/GI prophylaxis PT/OT DC plan--DC likely in 24-48 hours Patient is Full Code status.
[2017-03-05] MEDS: Oseltamivir 30 MG Cap PO SCH (17:51)
[2017-03-05] MEDS ORDERED: Azithromycin 250 MG Tab PO SCH (20:00)
[2017-03-05] MEDS: Loratadine 10 MG Tab PO SCH (20:21)
[2017-03-05] MEDS: Simvastatin 10 MG Tab PO SCH (20:21)
[2017-03-05] MEDS: methylPREDNISolone Sodium Succinate 40 MG/1 ML SDV IVPUSH SCH (20:23)
[2017-03-06] MEDS: Albuterol/Ipratropium 3.0-0.5 MG/3 ML Neb Soln NEB SCH ×4 (06:07→20:57)
[2017-03-06] MEDS: hydrALAZINE 20 MG/ML SDV IVPUSH PRN ×2 (06:20→23:40)
[2017-03-06] MEDS: Sodium Bicarbonate 650 MG Tab PO SCH (09:32)
[2017-03-06] MEDS: Saccharomyces Boulardii (Probiotic) 250 MG Cap PO SCH ×2 (09:32→20:42)
[2017-03-06] MEDS: methylPREDNISolone Sodium Succinate 40 MG/1 ML SDV IVPUSH SCH ×2 (09:32→20:42)
[2017-03-06] MEDS: Enoxaparin 30 MG/0.3 ML Syringe SUBCUT SCH (09:32)
[2017-03-06] MEDS: amLODIPine 10 MG Tab PO SCH (09:33)
[2017-03-06] MEDS: Atenolol 50 MG Tab PO SCH ×2 (09:33→17:37)
[2017-03-06] MEDS: Potassium Chloride 10 MEQ Tab.ER PO SCH (09:33)
[2017-03-06] MEDS: Furosemide 20 MG Tab PO SCH (09:34)
[2017-03-06] MEDS: Folic Acid 1 MG Tab PO SCH (09:34)
--- NOTE | 2017-03-06 12:59 | PCM.PN ---
- General Info Date of Service: 03/06/17 Admission Dx/Problem (Free Text): Admission Diagnosis/Problem Admission Diagnosis/Problem Influenza Emily Rangel is seen this morning, resting comfortably in bed. Looks weaker today. Overall states feels "so tired" and "no energy". Slept well last night. No f/c/s , no n/v/d. She is coughing, weak cough but is able to bring up a little sputum today, she was not able to do this yesterday. She is up with 1 assist and walker. Plans to DC home when ready. Kids are coming today from [place]. Functional Status: Reports: Pain Controlled, Tolerating Diet (still low appetite ), Ambulating, Urinating, Incentive Spirometry - Review of Systems General: Reports: Weakness, Fatigue, Malaise. Denies: Fever, Chills HEENT: Reports: No Symptoms. Denies: Headaches Pulmonary: Reports: Cough, Sputum (small amt today). Denies: Shortness of Breath, Pleuritic Chest Pain, Wheezing Cardiovascular: Reports: No Symptoms. Denies: Chest Pain, Palpitations Gastrointestinal: Reports: No Symptoms. Denies: Abdominal Pain, Diarrhea, Nausea Musculoskeletal: Reports: No Symptoms, Other (myalgias have improved) Neurological: Reports: No Symptoms. Denies: Dizziness, Headache - Patient Data Vitals - Most Recent: Last Vital Signs Temp 98.4 F 03/06/17 08:07 Pulse 89 03/06/17 09:33 Resp 20 03/06/17 08:07 BP 140/56 L 03/06/17 09:33 Pulse Ox 94 L 03/06/17 09:49 Weight - Most Recent: 150 lb 4.8 oz I&O - Last 24 Hours: Intake & Output 03/05/17 03/06/17 03/06/17 22:59 06:59 14:59 Intake Total 500 350 180 Output Total 600 500 Balance -100 -150 180 Lab Results Last 24 Hours: Laboratory Results - last 24 hr 03/06/17 03/06/17 Range/Units 06:20 06:20 WBC 17.86 H (3.98-10.04) K/mm3 RBC 4.35 (3.98-5.22) M/mm3 Hgb 13.2 (11.2-15.7) gm/L Hct 40.6 (34.1-44.9) % MCV 93.3 (79.4-94.8) fl MCH 30.3 (25.6-32.2) pg MCHC 32.5 (32.2-35.5) g/dl RDW Std Deviation 48.5 H (36.4-46.3) fL Plt Count 235 (182-369) K/mm3 MPV 10.6 (9.4-12.3) fl Neut % (Auto) 84.2 H (34.0-71.1) % Lymph % (Auto) 7.1 L (19.3-51.7) % [place] % (Auto) 5.0 (4.7-12.5) % Eos % (Auto) 0 L (0.7-5.8) Baso % (Auto) 0.2 (0.1-1.2) % Neut # (Auto) 15.03 H (1.56-6.13) K/mm3 Lymph # (Auto) 1.27 (1.18-3.74) K/mm3 [place] # (Auto) 0.90 H (0.24-0.36) K/mm3 Eos # (Auto) 0.00 L (0.04-0.36) K/mm3 Baso # (Auto) 0.04 (0.01-0.08) K/mm3 Manual Slide Review Normal smear Sodium 144 (136-145) mEq/L Potassium 3.6 (3.5-5.1) mEq/L Chloride 108 H (98-107) mEq/L Carbon Dioxide 25 (21-32) mEq/L Anion Gap 14.6 (5-15) BUN 38 H (7-18) mg/dL Creatinine 1.3 H (0.55-1.02) mg/dL Est Cr Clr Drug Dosing 21.90 mL/min Estimated GFR (MDRD) 39 (>60) mL/min BUN/Creatinine Ratio 29.2 H (14-18) Glucose 167 H (83-115) mg/dL Calcium 8.8 (8.5-10.1) mg/dL Magnesium 2.4 (1.8-2.4) mg/dl C-Reactive Protein 2.5 H* (<1.0) mg/dL Matthew Results Last 24 Hours: Microbiology 03/03/17 10:12 Streptococcus pneumoniae Antigen (M - Final Urine Med Orders - Current: Current Medications Acetaminophen (Tylenol) 650 mg PO Q4H PRN PRN Reason: Pain (moderate 4-6) Last Admin: 03/03/17 00:09 Dose: 650 mg Albuterol (Proventil Neb Soln) 2.5 mg NEB Q4H PRN PRN Reason: Shortness of Breath Albuterol/Ipratropium (Duoneb 3.0-0.5 Mg/3 Ml) 3 ml NEB QIDRT [facility] Last Admin: 03/06/17 09:49 Dose: 3 ml Amlodipine Besylate (Norvasc) 10 mg PO DAILY [facility] Last Admin: 03/06/17 09:33 Dose: 10 mg Atenolol (Tenormin) 25 mg PO QAM [facility] Atenolol (Tenormin) 50 mg PO QPM [facility] Docusate Sodium (Colace) 100 mg PO TID PRN PRN Reason: Constipation Enoxaparin Sodium (Lovenox) 30 mg SUBCUT DAILY [facility] Last Admin: 03/06/17 09:32 Dose: 30 mg Folic Acid (Folic Acid) 1 mg PO DAILY [facility] Last Admin: 03/06/17 09:34 Dose: 1 mg Furosemide (Lasix) 20 mg PO DAILY [facility] Last Admin: 03/06/17 09:34 Dose: 20 mg Guaifenesin/Phenylephrine HCl (Robitussin Dm) 10 ml PO Q4H PRN PRN Reason: Cough Last Admin: 03/04/17 20:10 Dose: 10 ml Hydralazine HCl (Apresoline) 20 mg IVPUSH Q6H PRN PRN Reason: Hypertension Last Admin: 03/06/17 06:20 Dose: 20 mg Loratadine (Claritin) 10 mg PO BEDTIME [facility] Last Admin: 03/05/17 20:21 Dose: 10 mg Methylprednisolone Sodium Succinate (Solu-Medrol) 40 mg IVPUSH Q12H [facility] Morphine Sulfate (Morphine) 1 mg IVPUSH Q4H PRN PRN Reason: Pain (severe 7-10) Potassium Chloride (Klor-Con 10) 20 meq PO DAILY [facility] Last Admin: 03/06/17 09:33 Dose: 20 meq Saccharomyces Boulardii (Florastor) 250 mg PO BID [facility] Last Admin: 03/06/17 09:32 Dose: 250 mg Simvastatin (Zocor) 5 mg PO BEDTIME [facility] Last Admin: 03/05/17 20:21 Dose: 5 mg Sodium Bicarbonate (Sodium Bicarbonate) 325 mg PO DAILY [facility] Last Admin: 03/06/17 09:32 Dose: 325 mg Sodium Chloride (Saline Flush) 10 ml FLUSH ASDIRECTED PRN PRN Reason: Keep Vein Open Last Admin: 03/02/17 17:39 Dose: 10 ml Temazepam (Restoril) 7.5 mg PO BEDTIME PRN PRN Reason: Insomnia Last Admin: 03/04/17 20:12 Dose: 7.5 mg Tramadol HCl (Ultram) 50 mg PO Q8H PRN PRN Reason: Pain (moderate 4-6) Discontinued Medications Albuterol (Proventil Neb Soln) 2.5 mg NEB ONETIME ONE Stop: 03/02/17 18:44 Last Admin: 03/02/17 18:50 Dose: 2.5 mg Atenolol (Tenormin) 25 mg PO BID [facility] Last Admin: 03/06/17 09:33 Dose: 25 mg Azithromycin (Zithromax) 250 mg PO Q24H [facility] Stop: 03/06/17 20:01 Last Admin: 03/05/17 20:21 Dose: 250 mg Cefpodoxime Proxetil (Vantin) 200 mg PO BID [facility] Furosemide (Lasix) 10 mg IVPUSH NOW [facility] Stop: 03/04/17 11:14 Last Admin: 03/04/17 11:35 Dose: 10 mg Azithromycin 500 mg/ Sodium (Chloride) 250 mls @ 250 mls/hr IV Q24H [facility] Last Admin: 03/04/17 20:10 Dose: 250 mls/hr Sodium Chloride (Sodium Chloride 0.45%) 1,000 mls @ 100 mls/hr IV ASDIRECTED [facility] Stop: 03/03/17 04:15 Last Admin: 03/03/17 03:45 Dose: 100 mls/hr Sodium Chloride (Sodium Chloride 0.45%) 1,000 mls @ 75 mls/hr IV ASDIRECTED [facility] Ceftriaxone Sodium 1 gm/ (Sodium Chloride) 100 mls @ 200 mls/hr IV ONETIME ONE Stop: 03/03/17 01:59 Last Admin: 03/03/17 02:57 Dose: 200 mls/hr Ceftriaxone Sodium 1 gm/ (Sodium Chloride) 100 mls @ 200 mls/hr IV ONETIME ONE Stop: 03/03/17 02:29 Last Admin: 03/03/17 03:51 Dose: 200 mls/hr Ceftriaxone Sodium 2 gm/ (Sodium Chloride) 100 mls @ 200 mls/hr IV Q24H [facility] Ceftriaxone Sodium 2 gm/ (Dextrose/Water) 100 mls @ 200 mls/hr IV Q24H [facility] Last Admin: 03/05/17 01:48 Dose: Not Given Methylprednisolone Sodium Succinate (Solu-Medrol) 80 mg IVPUSH Q8H [facility] Last Admin: 03/03/17 15:41 Dose: Not Given Methylprednisolone Sodium Succinate (Solu-Medrol) 80 mg IVPUSH Q8H [facility] Last Admin: 03/03/17 09:51 Dose: 80 mg Methylprednisolone Sodium Succinate (Solu-Medrol) 125 mg IVPUSH Q8H [facility] Last Admin: 03/05/17 08:12 Dose: 125 mg Methylprednisolone Sodium Succinate (Solu-Medrol) 80 mg IVPUSH Q12H [facility] Last Admin: 03/06/17 09:32 Dose: 80 mg Non-Formulary Medication (Fluticasone Propionate [Flovent]) 2 puff IH BID [facility] Non-Formulary Medication (L Acidophil/B Lactis/B Longum [Florajen3]) 460 mg PO DAILY [facility] Non-Formulary Medication (Psyllium Seed/Aspartame [Natural Fiber Powder]) 283 gm PO DAILY PRN PRN Reason: Constipation Oseltamivir Phosphate (Tamiflu) 75 mg PO QPM [facility] Last Admin: 03/03/17 00:11 Dose: 75 mg Oseltamivir Phosphate (Tamiflu) 30 mg PO QPM [facility] Stop: 03/06/17 20:00 Last Admin: 03/05/17 17:51 Dose: 30 mg Pseudoephedrine HCl (Sudogest) 30 mg PO Q8H PRN PRN Reason: Congestion Tramadol HCl (Ultram) 50 mg PO Q6H PRN PRN Reason: Pain (moderate 4-6) - Exam Quality Assessment: DVT Prophylaxis General: Alert, Oriented, Cooperative, No Acute Distress HEENT: Pupils Equal, EOMI, Mucous Membr. Moist/[place] Neck: Supple Lungs: Normal Respiratory Effort, Decreased Breath Sounds (throughout), Rhonchi (rt mid to lower lobes) Cardiovascular: Regular Rate, Regular Rhythm GI/Abdominal Exam: Normal Bowel Sounds, Soft, Non-Tender (Female) Exam: Deferred Back Exam: Normal Inspection Extremities: Normal Inspection, No Pedal Edema, Normal Capillary Refill Peripheral Pulses: 2+: Dorsalis Pedis (L), Dorsalis Pedis (R) Neurological: No New Focal Deficit Psy/Mental Status: Alert, Normal Affect, Normal Mood - Problem List & Annotations (1) Influenza A SNOMED Code(s): 736310458 Code(s): J10.1 - FLU DUE TO OTH IDENT INFLUENZA VIRUS W OTH RESP MANIFEST Status: Acute Priority: High Current Visit: Yes (2) Hypoxia SNOMED Code(s): 033622190 Code(s): R09.02 - HYPOXEMIA Status: Resolved Priority: High Current Visit: Yes - Problem List Review Problem List Initiated/Reviewed/Updated: Yes - My Orders Last 24 Hours: My Active Orders 03/06/17 12:51 RT Flutter Valve Therapy [RT Acapella] [RESPCARE] Routine 03/06/17 13:00 methylPREDNISolone Sod Succ [Solu-MEDROL] 40 mg IVPUSH Q12H 03/06/17 18:00 Atenolol [Tenormin] 50 mg PO QPM 03/07/17 08:00 Atenolol [Tenormin] 25 mg PO QAM - Plan Plan:: Impression/Plan: Acute respiratory distress with hypoxia---improving--resolved- on RA now -Supplemental oxygen PRN -RT/IS/Nebs -Negative mycoplasma; strep pneumo antigen also negative Influenza A positive, reports getting Flu vaccine. -Tamiflu BID--has completed 5 day course, will DC today -DC vantin, cont zithromax for antiinflammatory purposes x 1-2 more days then DC--- will DC zithromax today. -Taper solumedrol, 125 Q8hrs to 80mg Q12 hrs----decreased today to 40mg Q12 hours with plans to start on PO prednisone taper tomorrow -CXR done 03/05/17 shows pulm vasc congestion with ? minimal pleural effusions - rec'd lasix IVP yesterday, good UO noted; no evidence or concerns for pneumonia. CKD, stage 3 -Follow renal labs -Creatinine -1.4-->1.2--1.1-->1.4-->1.3 -Renal dose medications; caution with diuresis Elevated blood glucose; no hx of DM -Likely due to high dose steroids -Check A1C-->5.8 Chronic HTN--resume home meds; norvasc and lasix; B/P still running higher- rec'd IV apresoline overnight. Will increase atenolol HS dose from 25mg to 50mg, cont 25mg am dose and cont close monitoring. HLD- cont home statin COPD, history of tobacco; stopped 1989 Other: Daily labs Home meds Droplet precautions DVT/GI prophylaxis PT/OT DC plan--DC likely in 24 hours; still very weak, coughing, myalgias. Family will be home to help her and settled in as of tomorrow as plans for DC home. Likely DC home tomorrow. LOS > 96 hours due to slower than expected course if improvement/weakness due to acute influenza illness. Patient is Full Code status. PCP is Ronnie Amin PA-C with [facility] in [place].
[2017-03-06] MEDS: Simvastatin 10 MG Tab PO SCH (20:40)
[2017-03-06] MEDS: Loratadine 10 MG Tab PO SCH (20:42)
[2017-03-07] MEDS: Albuterol/Ipratropium 3.0-0.5 MG/3 ML Neb Soln NEB SCH ×4 (05:59→20:42)
[2017-03-07] MEDS ORDERED: Oseltamivir 30 MG Cap PO ONE (07:45)
[2017-03-07] MEDS: Saccharomyces Boulardii (Probiotic) 250 MG Cap PO SCH ×2 (08:21→21:53)
[2017-03-07] MEDS: Sodium Bicarbonate 650 MG Tab PO SCH (08:21)
[2017-03-07] MEDS: Potassium Chloride 10 MEQ Tab.ER PO SCH (08:22)
[2017-03-07] MEDS: Folic Acid 1 MG Tab PO SCH (08:22)
[2017-03-07] MEDS: Atenolol 25 MG Tab PO SCH (08:22)
[2017-03-07] MEDS: Furosemide 20 MG Tab PO SCH (08:22)
[2017-03-07] MEDS: amLODIPine 10 MG Tab PO SCH (08:23)
[2017-03-07] MEDS: Enoxaparin 30 MG/0.3 ML Syringe SUBCUT SCH (08:23)
[2017-03-07] MEDS: methylPREDNISolone Sodium Succinate 40 MG/1 ML SDV IVPUSH SCH ×2 (08:31→21:55)
--- NOTE | 2017-03-07 08:32 | PCM.DCSUM1 ---
Discharge Summary - Hospital Course Free Text/Narrative:: 86 year old female with probable Influenza A exposure from her grandson whom she spent 02/25/17. The symptoms began on Sunday or Sunday of this week. She had malaise, productive cough and generalized weakness. The patient was seen in a walk in clinic today, 03/02/17. During that visit, hypoxia was documented; O2 sat was in the low 80s but improved with O2. Currently on 4l/m NC, she is 97%. The patient has audible rhonchi without the use of a stethoscope. CXR shows a possible LLL infiltrate. She will be admitted to [facility]. - Discharge Data Discharge Date: 03/08/17 (admit date 03/02/17) Discharge Disposition: Home, W Home Health Agency 06 Condition: Good - Discharge Diagnosis/Problem(s) (1) Influenza A SNOMED Code(s): 218967577 ICD Code: J10.1 - FLU DUE TO OTH IDENT INFLUENZA VIRUS W OTH RESP MANIFEST Status: Acute Priority: High Current Visit: Yes (2) Hypoxia SNOMED Code(s): 652726325 ICD Code: R09.02 - HYPOXEMIA Status: Resolved Priority: High Current Visit: Yes - Patient Summary/Data Operative Procedure(s) Performed: None Complications: None Consults: Consultations 03/03/17 09:00 Consult to Occupational Therapy [OT Evaluation and Treatment] [CONS] Routine 03/03/17 10:00 Consult to Physical Therapy [PT Evaluation and Treatment] [CONS] Routine Labs Pending at D/C: None Recommended Follow-up Testing/Procedures: Patient DC instructions: Home health care nursing, [facility] [facility] and physical therapy. Therapy recommends Tub Transfer bench and lower body dressing kit for home use. Check b/p randomly once daily and record; bring record into follow up visit with PCP--b/p medications may need to be adjusted. Follow up with PCP, Anna Amin PA-C within 5-7 days of discharge. Push fluids Ambulate 4 times daily to keep your strength Planned Operative Procedure(s) after DC: None Hospital Course: Impression/Plan: Acute respiratory distress with hypoxia---improving--resolved- on RA now -Supplemental oxygen PRN -RT/IS/Nebs -Negative mycoplasma; strep pneumo antigen also negative Influenza A positive, reports getting Flu vaccine. -Tamiflu BID--has completed 5 day course, will DC today -DC vantin, cont zithromax for antiinflammatory purposes x 1-2 more days then DC--- will DC zithromax today. -Taper solumedrol, 125 Q8hrs to 80mg Q12 hrs----decreased today to 40mg Q12 hours with plans to start on PO prednisone taper tomorrow -CXR done 03/05/17 shows pulm vasc congestion with ? minimal pleural effusions - rec'd lasix IVP yesterday, good UO noted; no evidence or concerns for pneumonia. CKD, stage 3 -Follow renal labs -Creatinine -1.4-->1.2--1.1-->1.4-->1.3 -Renal dose medications; caution with diuresis Elevated blood glucose; no hx of DM -Likely due to high dose steroids -Check A1C-->5.8 Chronic HTN--resume home meds; norvasc and lasix; B/P still running higher- rec'd IV apresoline overnight. Will increase atenolol HS dose from 25mg to 50mg, cont 25mg am dose and cont close monitoring. ----Will need b/p cuff at home, daily monitoring and may need medication adjustment at f/up visit. HLD- cont home statin COPD, history of tobacco; stopped 1989 Other: Daily labs Home meds Droplet precautions DVT/GI prophylaxis PT/OT DC plan--DC likely in 24 hours; still very weak, coughing, myalgias. Family will be home to help her and settled in as of tomorrow as plans for DC home. Plans for DC home today. Face to face encounter with patient today reveals she will greatly benefit from [facility] nursing and [facility] [facility] [employer] [facility] services for assist with medications, vital signs monitoring and education, disease process education regarding influenza A and hypertension. She will also receive PT services for strengthening and balance. Patient is and will be home bound. PCP is Anna Amin who will resume HHC at follow up visit in 5-7 days. LOS > 96 hours due to slower than expected course if improvement/weakness due to acute influenza illness. Patient is Full Code status. PCP is Anna Amin PA-C with [facility] in [place]. - Patient Instructions Diet: Heart Healthy Diet, Drink 8-10+ Glasses/Day Activity: As Tolerated Showering/Bathing: May Shower Notify Provider of: Fever, Increased Pain, Nausea and/or Vomiting (dizziness, lightheaded, chest pains, worsening of cough or shortness of breath) - Discharge Plan Prescriptions/Med Rec: Atenolol [Tenormin] 25 mg PO QAM #30 tablet Atenolol [Tenormin] 50 mg PO QPM #30 tablet Loratadine [Claritin] 10 mg PO BEDTIME PRN #20 tablet PRN Reason: congestion, sneezing Prednisone [IJD: Prednisone] 10 mg PO DAILY #30 tab Home Medications: Home Meds Furosemide 20 mg PO DAILY 03/02/17 [History] Potassium Chloride 20 meq PO DAILY 03/02/17 [History] Simvastatin [Zocor] 5 mg PO BEDTIME 03/02/17 [History] amLODIPine Besylate [Amlodipine Besylate] 10 mg PO DAILY 03/02/17 [History] Albuterol/Ipratropium [Combivent Respimat] 1 puff IH QID 03/03/17 [History] Docusate Sodium [Stool Softener] 100 mg PO TID PRN 03/03/17 [History] Fluticasone Propionate [Flovent] 2 puff IH BID 03/03/17 [History] Folic Acid 1 mg PO DAILY 03/03/17 [History] L Acidophil/B Lactis/B Longum [Florajen3] 460 mg PO DAILY 03/03/17 [History] Psyllium Seed/Aspartame [Natural Fiber Powder] 283 gm PO DAILY PRN 03/03/17 [ History] Sodium Bicarbonate 325 mg PO DAILY 03/03/17 [History] Acetaminophen [Tylenol] 650 mg PO Q4H PRN tablet 03/06/17 [Rx] Atenolol [Tenormin] 25 mg PO QAM #30 tablet 03/06/17 [Rx] Loratadine [Claritin] 10 mg PO BEDTIME PRN #20 tablet 03/06/17 [Rx] Atenolol [Tenormin] 50 mg PO QPM #30 tablet 03/07/17 [Rx] Prednisone [IJD: Prednisone] 10 mg PO DAILY #30 tab 03/07/17 [Rx] Patient Handouts: Influenza, Adult, [id number], DASH Eating Plan, Hypertension, [id number], Managing Your High Blood Pressure Forms: ED Department Discharge Referrals: Anna Amin PA [Primary Care Provider] - - Discharge Summary/Plan Comment DC Time >30 min.: Yes (45 min) - General Info Date of Service: 03/08/17 Admission Dx/Problem (Free Text: Admission Diagnosis/Problem Admission Diagnosis/Problem Influenza Emily Rangel is seen this morning, resting comfortably in bed. Looks overall better than yesterday; states feel a little stronger. Plans to DC home today with [facility] services. Functional Status: Reports: Pain Controlled, Tolerating Diet, Ambulating, Urinating, Incentive Spirometry - Review of Systems General: Reports: Weakness (improving slowly), Fatigue HEENT: Reports: No Symptoms Pulmonary: Reports: Cough. Denies: Shortness of Breath Cardiovascular: Reports: No Symptoms. Denies: Chest Pain Gastrointestinal: Reports: No Symptoms. Denies: Abdominal Pain, Diarrhea, Nausea, Vomiting Genitourinary: Reports: No Symptoms Neurological: Reports: No Symptoms - Patient Data Vitals - Most Recent: Last Vital Signs Temp 98.8 F 03/07/17 07:40 Pulse 79 03/07/17 08:22 Resp 20 03/07/17 07:40 BP 158/62 H 03/07/17 08:23 Pulse Ox 90 L 03/07/17 07:40 Weight - Most Recent: 150 lb 12.8 oz I&O - Last 24 hours: Intake & Output 03/06/17 03/07/17 03/07/17 22:59 06:59 14:59 Intake Total 550 400 Output Total 650 600 Balance -100 -200 Lab Results - Last 24 hrs: Laboratory Results - last 24 hr 03/07/17 03/07/17 Range/Units 06:00 06:00 WBC 15.65 H (3.98-10.04) K/mm3 RBC 4.28 (3.98-5.22) M/mm3 Hgb 13.0 (11.2-15.7) gm/L Hct 39.6 (34.1-44.9) % MCV 92.5 (79.4-94.8) fl MCH 30.4 (25.6-32.2) pg MCHC 32.8 (32.2-35.5) g/dl RDW Std Deviation 48.6 H (36.4-46.3) fL Plt Count 254 (182-369) K/mm3 MPV 10.9 (9.4-12.3) fl Neut % (Auto) 82.7 H (34.0-71.1) % Lymph % (Auto) 7.0 L (19.3-51.7) % [place] % (Auto) 6.2 (4.7-12.5) % Eos % (Auto) 0 L (0.7-5.8) Baso % (Auto) 0.1 (0.1-1.2) % Neut # (Auto) 12.94 H (1.56-6.13) K/mm3 Lymph # (Auto) 1.09 L (1.18-3.74) K/mm3 [place] # (Auto) 0.97 H (0.24-0.36) K/mm3 Eos # (Auto) 0.00 L (0.04-0.36) K/mm3 Baso # (Auto) 0.02 (0.01-0.08) K/mm3 Manual Slide Review Abnormal smear Sodium 146 H (136-145) mEq/L Potassium 3.6 (3.5-5.1) mEq/L Chloride 110 H (98-107) mEq/L Carbon Dioxide 26 (21-32) mEq/L Anion Gap 13.6 (5-15) BUN 45 H (7-18) mg/dL Creatinine 1.3 H (0.55-1.02) mg/dL Est Cr Clr Drug Dosing 21.90 mL/min Estimated GFR (MDRD) 39 (>60) mL/min BUN/Creatinine Ratio 34.6 H (14-18) Glucose 159 H (83-115) mg/dL Calcium 8.5 (8.5-10.1) mg/dL Magnesium 2.5 H (1.8-2.4) mg/dl C-Reactive Protein 1.2 H* (<1.0) mg/dL KAELYN Results - Last 24 hrs: Microbiology 03/03/17 10:12 Streptococcus pneumoniae Antigen (M - Final Urine Med Orders - Current: Current Medications Acetaminophen (Tylenol) 650 mg PO Q4H PRN PRN Reason: Pain (moderate 4-6) Last Admin: 03/03/17 00:09 Dose: 650 mg Albuterol (Proventil Neb Soln) 2.5 mg NEB Q4H PRN PRN Reason: Shortness of Breath Albuterol/Ipratropium (Duoneb 3.0-0.5 Mg/3 Ml) 3 ml NEB QIDRT [facility] Last Admin: 03/07/17 05:59 Dose: 3 ml Amlodipine Besylate (Norvasc) 10 mg PO DAILY [facility] Last Admin: 03/07/17 08:23 Dose: 10 mg Atenolol (Tenormin) 25 mg PO QAM [facility] Last Admin: 03/07/17 08:22 Dose: 25 mg Atenolol (Tenormin) 50 mg PO QPM [facility] Last Admin: 03/06/17 17:37 Dose: 50 mg Docusate Sodium (Colace) 100 mg PO TID PRN PRN Reason: Constipation Enoxaparin Sodium (Lovenox) 30 mg SUBCUT DAILY [facility] Last Admin: 03/07/17 08:23 Dose: 30 mg Folic Acid (Folic Acid) 1 mg PO DAILY [facility] Last Admin: 03/07/17 08:22 Dose: 1 mg Furosemide (Lasix) 20 mg PO DAILY [facility] Last Admin: 03/07/17 08:22 Dose: 20 mg Guaifenesin/Phenylephrine HCl (Robitussin Dm) 10 ml PO Q4H PRN PRN Reason: Cough Last Admin: 03/04/17 20:10 Dose: 10 ml Hydralazine HCl (Apresoline) 20 mg IVPUSH Q6H PRN PRN Reason: Hypertension Last Admin: 03/06/17 23:40 Dose: 20 mg Loratadine (Claritin) 10 mg PO BEDTIME [facility] Last Admin: 03/06/17 20:42 Dose: 10 mg Methylprednisolone Sodium Succinate (Solu-Medrol) 40 mg IVPUSH Q12H [facility] Last Admin: 03/06/17 20:42 Dose: 40 mg Morphine Sulfate (Morphine) 1 mg IVPUSH Q4H PRN PRN Reason: Pain (severe 7-10) Potassium Chloride (Klor-Con 10) 20 meq PO DAILY [facility] Last Admin: 03/07/17 08:22 Dose: 20 meq Saccharomyces Boulardii (Florastor) 250 mg PO BID [facility] Last Admin: 03/07/17 08:21 Dose: 250 mg Simvastatin (Zocor) 5 mg PO BEDTIME [facility] Last Admin: 03/06/17 20:40 Dose: 5 mg Sodium Bicarbonate (Sodium Bicarbonate) 325 mg PO DAILY [facility] Last Admin: 03/07/17 08:21 Dose: 325 mg Sodium Chloride (Saline Flush) 10 ml FLUSH ASDIRECTED PRN PRN Reason: Keep Vein Open Last Admin: 03/02/17 17:39 Dose: 10 ml Temazepam (Restoril) 7.5 mg PO BEDTIME PRN PRN Reason: Insomnia Last Admin: 03/04/17 20:12 Dose: 7.5 mg Tramadol HCl (Ultram) 50 mg PO Q8H PRN PRN Reason: Pain (moderate 4-6) Discontinued Medications Albuterol (Proventil Neb Soln) 2.5 mg NEB ONETIME ONE Stop: 03/02/17 18:44 Last Admin: 03/02/17 18:50 Dose: 2.5 mg Atenolol (Tenormin) 25 mg PO BID [facility] Last Admin: 03/06/17 09:33 Dose: 25 mg Azithromycin (Zithromax) 250 mg PO Q24H [facility] Stop: 03/06/17 20:01 Last Admin: 03/05/17 20:21 Dose: 250 mg Cefpodoxime Proxetil (Vantin) 200 mg PO BID [facility] Furosemide (Lasix) 10 mg IVPUSH NOW ONE Stop: 03/04/17 11:14 Last Admin: 03/04/17 11:35 Dose: 10 mg Azithromycin 500 mg/ Sodium (Chloride) 250 mls @ 250 mls/hr IV Q24H [facility] Last Admin: 03/04/17 20:10 Dose: 250 mls/hr Sodium Chloride (Sodium Chloride 0.45%) 1,000 mls @ 100 mls/hr IV ASDIRECTED [facility] Stop: 03/03/17 04:15 Last Admin: 03/03/17 03:45 Dose: 100 mls/hr Sodium Chloride (Sodium Chloride 0.45%) 1,000 mls @ 75 mls/hr IV ASDIRECTED [facility] Ceftriaxone Sodium 1 gm/ (Sodium Chloride) 100 mls @ 200 mls/hr IV ONETIME ONE Stop: 03/03/17 01:59 Last Admin: 03/03/17 02:57 Dose: 200 mls/hr Ceftriaxone Sodium 1 gm/ (Sodium Chloride) 100 mls @ 200 mls/hr IV ONETIME ONE Stop: 03/03/17 02:29 Last Admin: 03/03/17 03:51 Dose: 200 mls/hr Ceftriaxone Sodium 2 gm/ (Sodium Chloride) 100 mls @ 200 mls/hr IV Q24H [facility] Ceftriaxone Sodium 2 gm/ (Dextrose/Water) 100 mls @ 200 mls/hr IV Q24H [facility] Last Admin: 03/05/17 01:48 Dose: Not Given Methylprednisolone Sodium Succinate (Solu-Medrol) 80 mg IVPUSH Q8H [facility] Last Admin: 03/03/17 15:41 Dose: Not Given Methylprednisolone Sodium Succinate (Solu-Medrol) 80 mg IVPUSH Q8H [facility] Last Admin: 03/03/17 09:51 Dose: 80 mg Methylprednisolone Sodium Succinate (Solu-Medrol) 125 mg IVPUSH Q8H [facility] Last Admin: 03/05/17 08:12 Dose: 125 mg Methylprednisolone Sodium Succinate (Solu-Medrol) 80 mg IVPUSH Q12H [facility] Last Admin: 03/06/17 09:32 Dose: 80 mg Non-Formulary Medication (Fluticasone Propionate [Flovent]) 2 puff IH BID [facility] Non-Formulary Medication (L Acidophil/B Lactis/B Longum [Florajen3]) 460 mg PO DAILY [facility] Non-Formulary Medication (Psyllium Seed/Aspartame [Natural Fiber Powder]) 283 gm PO DAILY PRN PRN Reason: Constipation Oseltamivir Phosphate (Tamiflu) 75 mg PO QPM [facility] Last Admin: 03/03/17 00:11 Dose: 75 mg Oseltamivir Phosphate (Tamiflu) 30 mg PO QPM [facility] Stop: 03/06/17 20:00 Last Admin: 03/05/17 17:51 Dose: 30 mg Oseltamivir Phosphate (Tamiflu) 30 mg PO ONETIME ONE Stop: 03/07/17 07:46 Last Admin: 03/07/17 07:49 Dose: 30 mg Pseudoephedrine HCl (Sudogest) 30 mg PO Q8H PRN PRN Reason: Congestion Tramadol HCl (Ultram) 50 mg PO Q6H PRN PRN Reason: Pain (moderate 4-6) - Exam Quality Assessment: Reports: DVT Prophylaxis General: Reports: Alert, Oriented, Cooperative, No Acute Distress HEENT: Reports: Pupils Equal, EOMI, Mucous Membr. Moist/[place] Neck: Reports: Supple Lungs: Reports: Normal Respiratory Effort, Decreased Breath Sounds Cardiovascular: Reports: Regular Rate, Regular Rhythm GI/Abdominal Exam: Normal Bowel Sounds, Soft, Non-Tender (Female) Exam: Deferred Rectal (Female) Exam: Deferred Extremities: No Pedal Edema, Normal Capillary Refill Neurological: Reports: No New Focal Deficit Psy/Mental Status: Reports: Alert, Normal Affect, Normal Mood *Q Meaningful Use (DIS) - VTE *Q VTE Criteria *Q: - Stroke *Q Stroke Criteria *Q: - AMI *Q AMI Criteria *Q:
--- NOTE | 2017-03-07 11:18 | PCM.PN ---
- General Info Date of Service: 03/07/17 Admission Dx/Problem (Free Text): Admission Diagnosis/Problem Admission Diagnosis/Problem Influenza A Claire is seen this morning, resting comfortably in bed. Looks overall better than yesterday; states feel a little stronger. Son is in room with patient. She has stronger cough which is productive now. She does not feel strong enough to go home yet today. Functional Status: Reports: Pain Controlled, Tolerating Diet, Ambulating, Urinating, Incentive Spirometry (and FV) - Review of Systems General: Reports: Weakness, Fatigue, Malaise, Appetite (improving). Denies: Fever, Chills, Night Sweats HEENT: Reports: No Symptoms. Denies: Headaches Pulmonary: Reports: Cough, Sputum (slight production as of this morning). Denies: Shortness of Breath Cardiovascular: Reports: No Symptoms. Denies: Chest Pain Gastrointestinal: Reports: No Symptoms. Denies: Diarrhea, Nausea, Vomiting Musculoskeletal: Reports: Other (myalgias resolving/resolved) Neurological: Reports: No Symptoms Psychiatric: Reports: No Symptoms - Patient Data Vitals - Most Recent: Last Vital Signs Temp 98.8 F 03/07/17 07:40 Pulse 79 03/07/17 08:22 Resp 20 03/07/17 07:40 BP 158/62 H 03/07/17 08:23 Pulse Ox 94 L 03/07/17 10:48 Weight - Most Recent: 150 lb 12.8 oz I&O - Last 24 Hours: Intake & Output 03/06/17 03/07/17 03/07/17 22:59 06:59 14:59 Intake Total 550 400 300 Output Total 650 600 Balance -100 -200 300 Lab Results Last 24 Hours: Laboratory Results - last 24 hr 03/07/17 03/07/17 Range/Units 06:00 06:00 WBC 15.65 H (3.98-10.04) K/mm3 RBC 4.28 (3.98-5.22) M/mm3 Hgb 13.0 (11.2-15.7) gm/L Hct 39.6 (34.1-44.9) % MCV 92.5 (79.4-94.8) fl MCH 30.4 (25.6-32.2) pg MCHC 32.8 (32.2-35.5) g/dl RDW Std Deviation 48.6 H (36.4-46.3) fL Plt Count 254 (182-369) K/mm3 MPV 10.9 (9.4-12.3) fl Neut % (Auto) 82.7 H (34.0-71.1) % Lymph % (Auto) 7.0 L (19.3-51.7) % Thomas % (Auto) 6.2 (4.7-12.5) % Eos % (Auto) 0 L (0.7-5.8) Baso % (Auto) 0.1 (0.1-1.2) % Neut # (Auto) 12.94 H (1.56-6.13) K/mm3 Lymph # (Auto) 1.09 L (1.18-3.74) K/mm3 Thomas # (Auto) 0.97 H (0.24-0.36) K/mm3 Eos # (Auto) 0.00 L (0.04-0.36) K/mm3 Baso # (Auto) 0.02 (0.01-0.08) K/mm3 Manual Slide Review Abnormal smear Sodium 146 H (136-145) mEq/L Potassium 3.6 (3.5-5.1) mEq/L Chloride 110 H (98-107) mEq/L Carbon Dioxide 26 (21-32) mEq/L Anion Gap 13.6 (5-15) BUN 45 H (7-18) mg/dL Creatinine 1.3 H (0.55-1.02) mg/dL Est Cr Clr Drug Dosing 21.90 mL/min Estimated GFR (MDRD) 39 (>60) mL/min BUN/Creatinine Ratio 34.6 H (14-18) Glucose 159 H (83-115) mg/dL Calcium 8.5 (8.5-10.1) mg/dL Magnesium 2.5 H (1.8-2.4) mg/dl C-Reactive Protein 1.2 H* (<1.0) mg/dL Matthew Results Last 24 Hours: Microbiology 03/03/17 10:12 Streptococcus pneumoniae Antigen (M - Final Urine Med Orders - Current: Current Medications Acetaminophen (Tylenol) 650 mg PO Q4H PRN PRN Reason: Pain (moderate 4-6) Last Admin: 03/03/17 00:09 Dose: 650 mg Albuterol (Proventil Neb Soln) 2.5 mg NEB Q4H PRN PRN Reason: Shortness of Breath Albuterol/Ipratropium (Duoneb 3.0-0.5 Mg/3 Ml) 3 ml NEB QIDRT [facility] Last Admin: 03/07/17 10:47 Dose: 3 ml Amlodipine Besylate (Norvasc) 10 mg PO DAILY [facility] Last Admin: 03/07/17 08:23 Dose: 10 mg Atenolol (Tenormin) 25 mg PO QAM [facility] Last Admin: 03/07/17 08:22 Dose: 25 mg Atenolol (Tenormin) 50 mg PO QPM [facility] Last Admin: 03/06/17 17:37 Dose: 50 mg Docusate Sodium (Colace) 100 mg PO TID PRN PRN Reason: Constipation Enoxaparin Sodium (Lovenox) 30 mg SUBCUT DAILY [facility] Last Admin: 03/07/17 08:23 Dose: 30 mg Folic Acid (Folic Acid) 1 mg PO DAILY [facility] Last Admin: 03/07/17 08:22 Dose: 1 mg Furosemide (Lasix) 20 mg PO DAILY [facility] Last Admin: 03/07/17 08:22 Dose: 20 mg Guaifenesin/Phenylephrine HCl (Robitussin Dm) 10 ml PO Q4H PRN PRN Reason: Cough Last Admin: 03/04/17 20:10 Dose: 10 ml Hydralazine HCl (Apresoline) 20 mg IVPUSH Q6H PRN PRN Reason: Hypertension Last Admin: 03/06/17 23:40 Dose: 20 mg Loratadine (Claritin) 10 mg PO BEDTIME [facility] Last Admin: 03/06/17 20:42 Dose: 10 mg Methylprednisolone Sodium Succinate (Solu-Medrol) 40 mg IVPUSH Q12H [facility] Last Admin: 03/07/17 08:31 Dose: 40 mg Morphine Sulfate (Morphine) 1 mg IVPUSH Q4H PRN PRN Reason: Pain (severe 7-10) Potassium Chloride (Klor-Con 10) 20 meq PO DAILY [facility] Last Admin: 03/07/17 08:22 Dose: 20 meq Saccharomyces Boulardii (Florastor) 250 mg PO BID [facility] Last Admin: 03/07/17 08:21 Dose: 250 mg Simvastatin (Zocor) 5 mg PO BEDTIME [facility] Last Admin: 03/06/17 20:40 Dose: 5 mg Sodium Bicarbonate (Sodium Bicarbonate) 325 mg PO DAILY [facility] Last Admin: 03/07/17 08:21 Dose: 325 mg Sodium Chloride (Saline Flush) 10 ml FLUSH ASDIRECTED PRN PRN Reason: Keep Vein Open Last Admin: 03/02/17 17:39 Dose: 10 ml Temazepam (Restoril) 7.5 mg PO BEDTIME PRN PRN Reason: Insomnia Last Admin: 03/04/17 20:12 Dose: 7.5 mg Tramadol HCl (Ultram) 50 mg PO Q8H PRN PRN Reason: Pain (moderate 4-6) Discontinued Medications Albuterol (Proventil Neb Soln) 2.5 mg NEB ONETIME ONE Stop: 03/02/17 18:44 Last Admin: 03/02/17 18:50 Dose: 2.5 mg Atenolol (Tenormin) 25 mg PO BID [facility] Last Admin: 03/06/17 09:33 Dose: 25 mg Azithromycin (Zithromax) 250 mg PO Q24H [facility] Stop: 03/06/17 20:01 Last Admin: 03/05/17 20:21 Dose: 250 mg Cefpodoxime Proxetil (Vantin) 200 mg PO BID [facility] Furosemide (Lasix) 10 mg IVPUSH NOW ONE Stop: 03/04/17 11:14 Last Admin: 03/04/17 11:35 Dose: 10 mg Azithromycin 500 mg/ Sodium (Chloride) 250 mls @ 250 mls/hr IV Q24H [facility] Last Admin: 03/04/17 20:10 Dose: 250 mls/hr Sodium Chloride (Sodium Chloride 0.45%) 1,000 mls @ 100 mls/hr IV ASDIRECTED [facility] Stop: 03/03/17 04:15 Last Admin: 03/03/17 03:45 Dose: 100 mls/hr Sodium Chloride (Sodium Chloride 0.45%) 1,000 mls @ 75 mls/hr IV ASDIRECTED [facility] Ceftriaxone Sodium 1 gm/ (Sodium Chloride) 100 mls @ 200 mls/hr IV ONETIME ONE Stop: 03/03/17 01:59 Last Admin: 03/03/17 02:57 Dose: 200 mls/hr Ceftriaxone Sodium 1 gm/ (Sodium Chloride) 100 mls @ 200 mls/hr IV ONETIME ONE Stop: 03/03/17 02:29 Last Admin: 03/03/17 03:51 Dose: 200 mls/hr Ceftriaxone Sodium 2 gm/ (Sodium Chloride) 100 mls @ 200 mls/hr IV Q24H [facility] Ceftriaxone Sodium 2 gm/ (Dextrose/Water) 100 mls @ 200 mls/hr IV Q24H [facility] Last Admin: 03/05/17 01:48 Dose: Not Given Methylprednisolone Sodium Succinate (Solu-Medrol) 80 mg IVPUSH Q8H [facility] Last Admin: 03/03/17 15:41 Dose: Not Given Methylprednisolone Sodium Succinate (Solu-Medrol) 80 mg IVPUSH Q8H [facility] Last Admin: 03/03/17 09:51 Dose: 80 mg Methylprednisolone Sodium Succinate (Solu-Medrol) 125 mg IVPUSH Q8H [facility] Last Admin: 03/05/17 08:12 Dose: 125 mg Methylprednisolone Sodium Succinate (Solu-Medrol) 80 mg IVPUSH Q12H [facility] Last Admin: 03/06/17 09:32 Dose: 80 mg Non-Formulary Medication (Fluticasone Propionate [Flovent]) 2 puff IH BID [facility] Non-Formulary Medication (L Acidophil/B Lactis/B Longum [Florajen3]) 460 mg PO DAILY [facility] Non-Formulary Medication (Psyllium Seed/Aspartame [Natural Fiber Powder]) 283 gm PO DAILY PRN PRN Reason: Constipation Oseltamivir Phosphate (Tamiflu) 75 mg PO QPM [facility] Last Admin: 03/03/17 00:11 Dose: 75 mg Oseltamivir Phosphate (Tamiflu) 30 mg PO QPM [facility] Stop: 03/06/17 20:00 Last Admin: 03/05/17 17:51 Dose: 30 mg Oseltamivir Phosphate (Tamiflu) 30 mg PO ONETIME ONE Stop: 03/07/17 07:46 Last Admin: 03/07/17 07:49 Dose: 30 mg Pseudoephedrine HCl (Sudogest) 30 mg PO Q8H PRN PRN Reason: Congestion Tramadol HCl (Ultram) 50 mg PO Q6H PRN PRN Reason: Pain (moderate 4-6) - Exam Quality Assessment: DVT Prophylaxis General: Alert, Oriented, Cooperative, No Acute Distress HEENT: Pupils Equal, EOMI, Mucous Membr. Moist/[place] Neck: Supple Lungs: Normal Respiratory Effort, Decreased Breath Sounds, Rhonchi (bases bilat) Cardiovascular: Regular Rate, Regular Rhythm GI/Abdominal Exam: Normal Bowel Sounds, Soft, Non-Tender (Female) Exam: Deferred Extremities: Normal Inspection, No Pedal Edema, Normal Capillary Refill Peripheral Pulses: 1+: Dorsalis Pedis (L), Dorsalis Pedis (R) Neurological: No New Focal Deficit Psy/Mental Status: Alert, Normal Affect, Normal Mood - Problem List & Annotations (1) Influenza A SNOMED Code(s): 608094499 Code(s): J10.1 - FLU DUE TO OTH IDENT INFLUENZA VIRUS W OTH RESP MANIFEST Status: Acute Priority: High Current Visit: Yes (2) Hypoxia SNOMED Code(s): 120017843 Code(s): R09.02 - HYPOXEMIA Status: Resolved Priority: High Current Visit: Yes (3) Generalized weakness SNOMED Code(s): 50877544 Code(s): R53.1 - WEAKNESS Status: Acute Priority: High Current Visit: Yes - Problem List Review Problem List Initiated/Reviewed/Updated: Yes - My Orders Last 24 Hours: My Active Orders 03/06/17 18:00 Atenolol [Tenormin] 50 mg PO QPM 03/06/17 21:30 methylPREDNISolone Sod Succ [Solu-MEDROL] 40 mg IVPUSH Q12H 03/07/17 08:00 Atenolol [Tenormin] 25 mg PO QAM 03/07/17 10:04 Chest 2V [CR] Routine - Plan Plan:: Impression/Plan: Acute respiratory distress with hypoxia---improving--resolved- on RA now -Supplemental oxygen PRN -RT/IS/Nebs -Negative mycoplasma; strep pneumo antigen also negative Influenza A positive, reports getting Flu vaccine. -Tamiflu BID--has completed 5 day course for treatment -DC vantin, cont zithromax for antiinflammatory purposes x 1-2 more days then DC--- DC zithromax -Taper solumedrol, 125 Q8hrs to 80mg Q12 hrs----decreased today to 40mg Q12 hours with plans to start on PO prednisone taper tomorrow -CXR done 03/05/17 shows pulm vasc congestion with ? minimal pleural effusions - rec'd lasix IVP yesterday, good UO noted; no evidence or concerns for pneumonia. Repeat today 03/07/17 with improvements of congestion, no evidence of PNA by my wet read, will await radiologist final interp CKD, stage 3 -Follow renal labs -Creatinine -1.4-->1.2--1.1-->1.4-->1.3--stable at 1.3 -Renal dose medications; caution with diuresis Elevated blood glucose; no hx of DM -Likely due to high dose steroids -Check A1C-->5.8 Generalized weakness, 2/2 acute influenza illness -PT/OT -Appetite is slowly improving Chronic HTN--resume home meds; norvasc and lasix; increased atenolol HS dose from 25mg to 50mg, cont 25mg am dose and cont close monitoring. B/P's improved, no apresoline needed overnight. HLD- cont home statin COPD, history of tobacco; stopped 1989 Other: Daily labs Home meds Droplet precautions DVT/GI prophylaxis PT/OT DC plan--DC likely tomorrow; still very weak, coughing, myalgias. Family here to help at home now. Repeat CXR today. Cont PT/OT. Plan DC home tomorrow. LOS > 96 hours due to slower than expected course if improvement/weakness due to acute influenza illness. Patient is Full Code status. PCP is Ronnie Amin PA-C with [facility] in [place].
--- NOTE | 2017-03-07 11:48 | CR ---
Chest: Two views of the chest were obtained. Comparison: No prior chest x-ray. Heart is slightly enlarged. Tortuous thoracic aorta is seen. Lung markings are slightly increased. Nodular density is noted within the right midlung. Lungs otherwise are clear. Bony structures are grossly intact. Impression: 1. Increased central lung markings. Differential includes mild pulmonary vascular congestion versus bronchitis. 2. Nodular density within the right midlung. Follow-up chest x-ray recommended in several months to see if this finding persists. Diagnostic code #3
[2017-03-07] MEDS: Atenolol 50 MG Tab PO SCH (17:46)
[2017-03-07] MEDS: Loratadine 10 MG Tab PO SCH (21:54)
[2017-03-07] MEDS: Simvastatin 10 MG Tab PO SCH (21:54)
[2017-03-08] MEDS: hydrALAZINE 20 MG/ML SDV IVPUSH PRN (03:19)
[2017-03-08] MEDS: Albuterol/Ipratropium 3.0-0.5 MG/3 ML Neb Soln NEB SCH ×2 (06:45→10:04)
[2017-03-08] MEDS: Potassium Chloride 10 MEQ Tab.ER PO SCH (08:30)
[2017-03-08] MEDS: Atenolol 25 MG Tab PO SCH (08:30)
[2017-03-08] MEDS: Furosemide 20 MG Tab PO SCH (08:30)
[2017-03-08] MEDS: Saccharomyces Boulardii (Probiotic) 250 MG Cap PO SCH (08:30)
[2017-03-08] MEDS: amLODIPine 10 MG Tab PO SCH (08:31)
[2017-03-08] MEDS: Sodium Bicarbonate 650 MG Tab PO SCH (08:31)
[2017-03-08] MEDS: Folic Acid 1 MG Tab PO SCH (08:31)
[2017-03-08] MEDS: methylPREDNISolone Sodium Succinate 40 MG/1 ML SDV IVPUSH SCH (08:32)
[2017-03-08] MEDS: Enoxaparin 30 MG/0.3 ML Syringe SUBCUT SCH (08:32)
[2017-03-08 08:34] VITALS: BP 141/56
== END 2017-03-08 14:10 | disposition home health service (06) | DRG 195 ==
LOC: EDSEX 16:28 → JD.ED 16:28 → MERGE 19:39 → JD.MS 19:39
PROVIDERS: ADMIT Internal Medicine Cardiovascular Disease; ATTEND Internal Medicine Cardiovascular Disease
DX: J09.X2 Influenza due to identified novel influenza A virus with other respiratory manifestations (principal); R09.02 Hypoxemia; E78.00 Pure hypercholesterolemia, unspecified; I10 Essential (primary) hypertension; R06.03 Acute respiratory distress; I12.9 Hypertensive chronic kidney disease with stage 1 through stage 4 chronic kidney disease, or unspecified chronic kidney disease; N18.3 Chronic kidney disease, stage 3 (moderate); E78.5 Hyperlipidemia, unspecified; J44.9 Chronic obstructive pulmonary disease, unspecified; Z87.891 Personal history of nicotine dependence; Z79.899 Other long term (current) drug therapy
CPT/HCPCS: 36415; 71046; 80053; 85025; 86140; 87804 ×2; 94640; 99285; J7050; 80048; 83036; 83605; 83735; 86738; 87899; 94667; 94668; 94760; 94761; 97110-GO; 97110-GP; 97116-GP; 97161-GP; 97165-GO; 97530-GO; 97535-GO; 99284; A9270-GY; J0360; J0456; J0696; J1650; J2920; J2930; J7030; J7060